=== PATIENT | male | born 1930 | race Caucasian/White ===

== ENCOUNTER 2017-05-01 17:34 | Observation (INO) | payer MEDICARE ==
[~2017-05-01] VITALS: Ht 170.2 cm; Wt 60.0 kg
[~2017-05-01 17:34] MED LIST: /ALEN70TA OR; ACET50TA PO; ACET65TA OR; ALDA25TA2 PO; ALEN10TA2 PO; AMLO5TAB OR; AMLO5TAB PO; ANALCR TOP; ASCO500T PO; ASPI325T PO; ASPI81TA85 PO; AVOD0.5C OR; AVOD0.5C PO; Aleve PO; B-1210009 PO; BABY81CH OR; BABY81CH PO; CALC-210 PO; CALC12502 OR; CALC500T49 PO; CALCIUM CITRATE PO; CALCTAB34 PO; CALCTAB63 PO; COLA100C2 OR; D 1010004 PO; D 50CAP PO; DULE200A IN; ELIQ2.5T PO; FINA5TAB2 PO; FISH1000 PO; FISH100049 PO; FISH5CAP PO; FISHCAP PO; FOSA70TA PO; FURO20TA2 PO; FUROSEMIDE PO; IPRASOL4 INH; LASI20TA PO; LASI40TA PO; LEVO500T3 PO; LIORESAL PO; LISI-542 PO; LISI5TAB PO; MAGN250T11 PO; MAGN400T5 PO; MAGN64TASA PO; METO25TAB PO; MIRA33504 PO; NITR4TASL SL; NORV5TAB OR; OCUVITE PO; Ocuvite PO; PERC5TAB8 OR; PERC7.5T8 OR; PRED10TA PO; PRESCAP PO; PRESCAP4 PO; PROAAER10 IN; PROAAER10 INH; PYRI100T2 PO; PYRI50TA7 PO; SPIR25TA2 PO; SYMB16INH INH; TOPR25TA PO; TRAM50TA2 PO; TYLE325T5 PO; VIT D 2000 PO; VITA1TAB23 PO; VITA2000 PO; VITA250T OR; VITA250T PO; VITA250T30 PO; VITA50TA12 PO; [UNRECOGNIZED DRUG - CODE] PO; [UNRECOGNIZED DRUG - CODE] PO; [UNRECOGNIZED DRUG - OTHER] PO; duoneb NEB; lovaza PO
[2017-05-01 18:38] LABS: BASO % 0.4 % (0.0-1.0); EOS # 0.1 K/mm3 (0.0-0.50); EOS % 0.8 % (0.0-3.0); LARGE UNSTAINED CELL # 0.1 K/mm3 (0.0-0.4); LARGE UNSTAINED CELL % 1.1 % (0.0-4.0); LYMPH # 0.8 K/mm3 (1.5-4.5); LYMPH % 7.3 % (24.0-44.0); MEAN CORPUSCULAR HEMOGLOBIN 32.5 pg (27.0-33.0); MEAN CORPUSCULAR HGB CONC 33.5 g/dl (32.0-36.5); MONO # 0.7 K/mm3 (0.0-0.8); MONO % 6.2 % (0.0-5.0); NEUTROPHILS # 8.9 K/mm3 (1.8-7.7); NEUTROPHILS % 84.1 % (36.0-66.0); PLATELET COUNT, AUTOMATED 394 k/mm3 (150-450); RED CELL DISTRIBUTION WIDTH 12.3 % (11.5-14.5); WHITE BLOOD COUNT 10.6 K/mm3 (4.0-10.0)
[2017-05-01 18:40] LABS: INR 1.09
[2017-05-01 18:54] LABS: ANION GAP 4 MEQ/L (8-16); BLOOD UREA NITROGEN 20 MG/DL (7-18); CALCIUM LEVEL 8.8 MG/DL (8.8-10.2); CARBON DIOXIDE LEVEL 33 MEQ/L (21-32); CHLORIDE LEVEL 88 MEQ/L (98-107); CREATININE FOR GFR 0.73 MG/DL (0.70-1.30); GLOMERULAR FILTRATION RATE > 60.0 (>35); GLUCOSE, FASTING 93 MG/DL (83-110); POTASSIUM SERUM 4.7 MEQ/L (3.5-5.1); SODIUM LEVEL 125 MEQ/L (136-145)
--- NOTE | 2017-05-01 19:30 | REPUSA ---
CLINICAL HISTORY: CVA. TECHNIQUE: Multiple axial CT images were obtained through the brain without IV contrast material. COMMENTS: There is normal configuration of sella turcica. There are no intra or extra-axial collections. There is no mass effect or midline shift. There is no evidence of hematoma formation. No hydrocephalus is p resent. The ventricles are symmetrical. No abnormal calcifications are present. There is encephalomalacia noted involving the left frontal lobe compatible with old infarct. There is diffuse age-appropriate cerebellar and cerebral atrophy with proportionally dilated ventricl es and cortical sulci. There are bilateral periventricular and subcortical white matter hypolucencies compatible with chroni c microvascular disease. Otherwise, no significant focal abnormalities are seen either in the posterior fossa or supratentoria l compartment. IMPRESSION: 1. Age-appropriate cerebellar and cerebral atrophy. 2. Chronic microvascular disease. 3. Encephalomalacia noted involving the left frontal lobe compatible with old infarct. 4. No change in comparison with 10/11/16 study. 5. Consider follow up with MRI with diffusion if clinically warranted. Thank you for your kind referral of this patient.
[2017-05-01] MEDS ORDERED: FISH100049 PO (20:20)
[2017-05-01] MEDS ORDERED: B6 N1TAB PO (20:20)
[2017-05-01] MEDS ORDERED: XARE15TA PO (20:20)
[2017-05-01] MEDS ORDERED: NITROGLYCERIN 0.4 MG SUBL TABLET SL PRN (20:30)
[2017-05-01] MEDS ORDERED: ACETAMINOPHEN TAB 650MG DOSE (2X325MG) PO PRN (20:30)
--- NOTE | 2017-05-01 21:30 | REPUSA ---
CT of the chest without contrast Clinical statement: abnormal chest x-ray. Technique: Multiple axial CT images were obtained with 5 mm cuts through the chest without administra tion of contrast. Comparison: 10/11/2016. Findings: There is no thoracic lymphadenopathy. The visualized portions of the thyroid gland is unrem arkable. Diffuse atherosclerotic changes are seen in the thoracic aorta. There is no evidence of aneu rysm. There are no pericardial or pleural effusions. There is a large spiculated mass in the left upp er lobe measuring 3.9 x 2.8 cm, with central cavitation.. The mass has increase in size from 2.3 x 2. 0 cm on the prior study. Limited imaging of the upper abdomen does not demonstrate any acute abnormal ities. However, there is a large ill-defined low attenuation lesion in segment V of the liver, measu ring 5.8 x 6.4 cm. Several large simple cysts are also seen within the liver, and are stable. There a re no suspicious osseous lesions. Multilevel degenerative disc disease is noted throughout the spine. Impression: 1. Significant increase in size of the large left upper lobe mass consistent with neoplasm. New centr al cavitation is now noted. 2.. No evidence of thoracic metastatic disease. 3. Interval resolution of bilateral lower lobe infiltrates and pleural effusions. 4. New ill-defined lesion in the right lobe of the liver was not seen on the prior study and could re present metastatic disease. Dedicated CT examination of the abdomen and pelvis with contrast is richard mmended. 5.. Stable spondylosis of the spine.
[2017-05-01 23:08] VITALS: BP 140/72
[2017-05-01] MEDS: SPIRONOLACTONE 25 MG TAB PO SCH (23:55)
[2017-05-01] MEDS: MAGNESIUM OXIDE 400 MG TAB (MAG-OX) PO SCH (23:55)
--- NOTE | 2017-05-02 00:25 | HPE ---
DATE OF ADMISSION: 05/01/2017 CHIEF COMPLAINT: Left arm weakness. PRIMARY CARE PROVIDER: Lupis Siu MD. CHIEF OF HOSPITAL MEDICINE: Gerhard Wheeler MD. HISTORY OF PRESENT ILLNESS: This is an 87-year-old male with a history of chronic atrial fibrillation, pacemaker, coronary artery disease, hypertension, chronic hyponatremia, who was at the [facility] where his is a resident. He was assisting her with her dinner when his left hand seemed to shake. He could not control it. He was having difficulty with his speech. He felt as if he was stuttering. He states it lasted at least 5 minutes. The ambulance was called. He was brought to the emergency room. Upon arrival, temperature was 96.8. Pulse was 60. Blood pressure was 123/62. Respirations were 18. Oxygen saturation was 98%. He was alert and oriented. He was given aspirin prior to arrival. At time of arrival, he was oriented. His speech was clear. He had no further tremoring of the left hand. CT of the head was done, which showed age-appropriate cerebellar and cerebral atrophy, chronic microvascular disease, encephalomalacia involving the frontal lobe compatible with old infarct. No change in comparison to 10/11/2016. LABORATORY STUDIES: WBC was slightly elevated at 10.6, hemoglobin 11.9, hematocrit 35.6, platelets were 394. PT was 14.2, INR 1.09, PTT was 36.4. Chemistry showed sodium of 125, chloride 88, CO2 33, BUN was 20, creatinine 0.7. Troponin was 0.04. CPK was normal at 60. The patient has a known history of a lung mass. He has not wanted anything further done with it. Family and the patient requested a CAT scan to see the status of it and that will be ordered. The patient remains stable. Assessment was done and will be admitted as observation status to the telemetry floor for transient ischemic attack (TIA). ALLERGIES: No known allergies. SOCIAL HISTORY: He is . He lives alone. He visits his daily at the [facility]. Ethyl alcohol (EtOH): He used to drink beer quite heavily. He states he quit at [facility] and has only an occasional glass of beer. He states he did have a glass of beer today earlier when cooking. Smokes none. Recreational drug use none. PAST MEDICAL HISTORY: 1. Chronic atrial fibrillation on anticoagulation. 2. Hypertension. 3. Congestive heart failure (CHF). 4. Coronary artery disease with history of myocardial infarction (PA). 5. History of chronic obstructive pulmonary disease (COPD) and lung nodule. 6. History of diverticulitis. 7. BPH. 8. Chronic hyponatremia with a baseline of approximately 125, 126. 9. Osteoarthritis. 10. He has a pacemaker. 11. History of alcoholism. PAST SURGICAL HISTORY: 1. Pacemaker. 2. Bilateral cataract surgery. FAMILY HISTORY: Noncontributory. REVIEW OF SYSTEMS: No complaint of headache. No blurred or double vision. No fever. No chills. No tinnitus. No hoarseness. No difficulty swallowing. No complaints of lightheadedness or vertigo. He had just the episode as described above of slurred speech and a feeling of stuttering, which has resolved. Cardiovascular: No complaints of chest pain, shortness of breath, palpitations or edema. Respiratory: History of COPD. No complaints of cough, sputum production, hemoptysis. No orthopnea or wheeze. Gastrointestinal: No nausea, vomiting or diarrhea. No hematochezia. No melena. No complaints of abdominal pain. Genitourinary: No hematuria, dysuria or frequency. He does have BPH. Musculoskeletal: No joint redness or swelling. Endocrine: No polyuria, polydipsia or polyphagia. Hematological: Is on anticoagulation. Neurological: Episode as described above. No history of seizures. Psychological: No anxiety, depression or suicidal ideation. HOME MEDICATIONS: - ascorbic acid 500 mg by mouth daily - Symbicort 160/4.5 two-puff inhalation twice a day - vitamin D 5000 units daily - BPH 5 mg by mouth daily - omega-3 one capsule by mouth daily - magnesium oxide 400 mg by mouth twice a day - nitroglycerin 0.4 mg sublingual every 5 minutes times three as needed for chest pain - Xarelto 15 mg by mouth daily - spironolactone 25 mg by mouth nightly - alendronate (Fosamax) 70 mg by mouth weekly - paroxetine 100 mg by mouth daily PHYSICAL EXAMINATION: 87-year-old cooperative male in no acute distress. Height 67 inches. Weight 54.6 kg. Body mass index (BMI) 18.9. The patient is alert and oriented times three. Pupils equal and reactive to light. Extraocular muscles (EOMs) are intact. Cornea and sclerae clear. Conjunctivae were normal. No facial asymmetry. Tympanic membranes (TMs) clear bilaterally. Pharynx, tongue and gums pink and moist. Tongue is midline. Neck is supple without lymphadenopathy. No thyromegaly. No goiter. Jugular venous pressure at clavicle. Carotids are 2+ without bruit. Chest decreased breath sounds to base. No wheeze or retraction. Heart is regular. Abdomen is benign. Bowel sounds positive. /rectal: Not done. Extremities show no cyanosis, clubbing or edema. Moves all extremities equally well spontaneously with purpose. Hand industrial hygiene engineer are equal. Cranial nerves II-XII grossly intact. Skin is warm and dry. Peripheral pulses equal and palpable bilaterally. IMPRESSION AND PLAN: 1. Transient ischemic attack (TIA). Admit to telemetry. Get a carotid ultrasound. Continue neurological checks. 2. Left-sided pulmonary nodule. Chest CT for comparison has been ordered. 3. Chronic obstructive pulmonary disease (COPD). Currently clinically stable. Continue Symbicort. 4. Atrial fibrillation. Continues on anticoagulation. 5. BPH. Continue home medicine. 6. Hypertension. Stable. Patient will be admitted observation status to the progressive care unit (PCU).
[2017-05-02 04:25] VITALS: BP 118/65
[2017-05-02 05:43] LABS: BASO % 0.4 % (0.0-1.0); EOS # 0.1 K/mm3 (0.0-0.50); EOS % 1.1 % (0.0-3.0); LARGE UNSTAINED CELL # 0.1 K/mm3 (0.0-0.4); LARGE UNSTAINED CELL % 1.4 % (0.0-4.0); LYMPH # 0.7 K/mm3 (1.5-4.5); LYMPH % 7.4 % (24.0-44.0); MEAN CORPUSCULAR HEMOGLOBIN 32.5 pg (27.0-33.0); MEAN CORPUSCULAR HGB CONC 33.4 g/dl (32.0-36.5); MEAN CORPUSCULAR VOLUME 97.2 fl (80.0-96.0); MONO # 0.7 K/mm3 (0.0-0.8); MONO % 6.7 % (0.0-5.0); NEUTROPHILS # 8.1 K/mm3 (1.8-7.7); PLATELET COUNT, AUTOMATED 383 k/mm3 (150-450); RED CELL DISTRIBUTION WIDTH 12.3 % (11.5-14.5); WHITE BLOOD COUNT 9.7 K/mm3 (4.0-10.0)
[2017-05-02 06:07] LABS: ALBUMIN 2.7 GM/DL (3.2-5.2); ALBUMIN/GLOBULIN RATIO 0.77 (1.00-1.93); ALKALINE PHOSPHATASE 89 U/L (45-117); ALT/SGPT 22 U/L (12-78); ANION GAP 3 MEQ/L (8-16); AST/SGOT 16 U/L (15-37); BILIRUBIN,TOTAL 0.6 MG/DL (0.2-1.0); BLOOD UREA NITROGEN 15 MG/DL (7-18); CALCIUM LEVEL 8.6 MG/DL (8.8-10.2); CARBON DIOXIDE LEVEL 36 MEQ/L (21-32); CHLORIDE LEVEL 92 MEQ/L (98-107); CREATININE FOR GFR 0.51 MG/DL (0.70-1.30); GLOMERULAR FILTRATION RATE > 60.0 (>35); GLUCOSE, FASTING 92 MG/DL (83-110); MAGNESIUM LEVEL 1.8 MG/DL (1.8-2.4); POTASSIUM SERUM 4.8 MEQ/L (3.5-5.1); SODIUM LEVEL 131 MEQ/L (136-145); TOTAL PROTEIN 6.2 GM/DL (6.4-8.2)
[2017-05-02 07:52] VITALS: BP 115/58
[2017-05-02] MEDS: SYMBICORT 160/4.5MCG INHALER 6GM INH SCH ×2 (08:21→20:16)
--- NOTE | 2017-05-02 09:07 | REP ---
PORTABLE CHEST: AP portable view of the chest is performed and compared to a prior studies most recent of which is 10/12/2016. Left upper lobe nodule is seen. I see no acute infiltrate. There is elevation of the left hemidiaphragm. Cardiac silhouette is slightly prominent. There is calcified tortuous aorta. Left single lead pacemaker is noted unchanged. IMPRESSION: Left upper lobe nodule. Signed by Preet Rubio MD 05/02/2017 08:16 P
[2017-05-02] MEDS: RIVAROXABAN 15 MG TAB (XARELTO) PO SCH (10:53)
[2017-05-02] MEDS: FINASTERIDE 5 MG TAB PO SCH (10:53)
[2017-05-02] MEDS: VITAMIN D 1,000 INTERNATIONAL UNITS TABLET PO SCH (10:54)
[2017-05-02] MEDS: MAGNESIUM OXIDE 400 MG TAB (MAG-OX) PO SCH ×2 (10:54→21:30)
[2017-05-02] MEDS: ASCORBIC ACID 500 MG TAB PO SCH (10:54)
[2017-05-02] MEDS: OMEGA-3 1050MG CAPSULE PO SCH (10:54)
[2017-05-02 11:32] VITALS: BP 99/49
[2017-05-02] MEDS ORDERED: ISOVUE-370 76% 100ML VIAL (Q9967) As Ordered ONE (11:54)
--- NOTE | 2017-05-02 12:06 | IPNPDOC ---
Subjective Date Seen The patient was seen on 05/02/17. Subjective Chief Complaint/HPI The patient is a 87-year-old male admitted with a reason for visit of A Fib, Lung Mass, Tia. Events since last encounter no complaints this morning. No further episodes of shaking of his left arm or slurring of speech or aphasia, no fever or chills, no chest pain or sob , no abdominal pain , nausea or vomiting or diarrhea. Objective Physical Examination General Exam: Positive: Alert, Cooperative, No Acute Distress Eye Exam: Positive: PERRLA, Conjunctiva & lids normal, EOMI, Negative: Sclera icteric ENT Exam: Positive: Atraumatic, Mucous membr. moist/pink, Pharynx Normal Neck Exam: Positive: Supple, Negative: JVD, thyromegaly Chest Exam: Positive: Clear to auscultation, Normal air movement Heart Exam: Positive: Irregular Rhythm, Normal S1, Normal S2 Telemetry: Positive: Atrial fibrillation, Other Telemetry: (paced complexes) Abdomen Exam: Positive: Normal bowel sounds, Soft, Negative: Tenderness, Hepatospenomegaly Extremity Exam: Positive: Normal pulses, Negative: Clubbing, Cyanosis, Edema Neuro Exam: Positive: Normal Speech, Strength at 5/5 X4 ext, Normal Tone Assessment /Plan Problems (1) Tremor of left hand Status: Acute Problem Text: seems like patient was having intention tremor with aphasia lasted about 5 mins. need to evaluate for brain mets and focal seizure . Will get ct with contrast and eeg. If all negative then possibly TIA. Has h/o old CVA showing encephalomalacia in the left frontal lobe. (2) Lung cancer Status: Chronic Problem Text: enlarging with central necrosis now also seems to have new liver mets. 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 (4) A-fib Status: Chronic Problem Text: rate controlled. (5) Pacemaker Status: Chronic (6) COPD (chronic obstructive pulmonary disease) Status: Chronic Response to Treatment: Stable Problem Text: will continue with home medications No exacerbation at present. (7) Moderate to severe pulmonary hypertension Status: Chronic Response to Treatment: Stable (8) Diastolic CHF, chronic Status: Chronic Problem Text: appears to be euvolemic at present will continue to monitor weights and I and o (9) Chronic systolic (congestive) heart failure Status: Resolved Problem Text: Probably had systolic and diastolic heart failure with EF of 30 % in 2013 repeat echo in 2016 shows improved EF of 60 % .Possibly has diastolic heart failure only now (10) Mitral regurgitation Status: Chronic (11) BPH (benign prostatic hyperplasia) Status: Chronic (12) HTN (hypertension) Status: Chronic Plan/VTE VTE Prophylaxis Ordered?: Yes VS, I&O, 24H, Fishbone Vital Signs/I&O Vital Signs Date Time Temp Pulse Resp B/P (MAP) Pulse Ox O2 Delivery O2 Flow Rate FiO2 05/02/17 11:32 97.4 60 18 99/49 (66) 98 Room Air I&O- Last 24 Hours up to 6 AM 05/02/17 05:59 Intake Total 0 ml Output Total 275 ml Balance -275 ml Laboratory Data 24H LABS Laboratory Tests 2 05/01/17 17:55: White Blood Count 10.6H, Red Blood Count 3.67L, Hemoglobin 11.9L, Hematocrit 35.6L, Mean Corpuscular Volume 97.0H, Mean Corpuscular Hemoglobin 32.5, Mean Corpuscular Hemoglobin Concent 33.5, Red Cell Distribution Width 12.3, Platelet Count 394, Neutrophils (%) (Auto) 84.1H, Lymphocytes (%) (Auto) 7.3L, Monocytes (%) (Auto) 6.2H, Eosinophils (%) (Auto) 0.8, Basophils (%) (Auto) 0.4, Neutrophils # (Auto) 8.9H, Lymphocytes # (Auto) 0.8L, Monocytes # (Auto) 0.7, Eosinophils # (Auto) 0.1, Basophils # (Auto) 0.0, Large Unclassified Cells % 1.1 , Large Unclassified Cells # 0.1, Prothrombin Time 14.2, Prothromb Time International Ratio 1.09, Activated Partial Thromboplast Time 36.4, Anion Gap 4L , Glomerular Filtration Rate > 60.0, Blood Urea Nitrogen 20H, Creatinine 0.73, Sodium Level 125L, Potassium Level 4.7, Chloride Level 88L, Carbon Dioxide Level 33H, Calcium Level 8.8, Total Creatine Kinase 60, Creatine Kinase MB 2.7, Creatine Kinase MB Relative Index 4.50H, Troponin I 0.04 05/01/17 23:42: Total Creatine Kinase 55, Creatine Kinase MB 2.9, Creatine Kinase MB Relative Index 5.27H, Troponin I 0.05# 05/02/17 05:07: White Blood Count 9.7, Red Blood Count 3.75L, Hemoglobin 12.2L, Hematocrit 36.4L , Mean Corpuscular Volume 97.2H, Mean Corpuscular Hemoglobin 32.5, Mean Corpuscular Hemoglobin Concent 33.4, Red Cell Distribution Width 12.3, Platelet Count 383, Neutrophils (%) (Auto) 83.0H, Lymphocytes (%) (Auto) 7.4L, Monocytes (%) (Auto) 6.7H, Eosinophils (%) (Auto) 1.1, Basophils (%) (Auto) 0.4, Neutrophils # (Auto) 8.1H, Lymphocytes # (Auto) 0.7L, Monocytes # (Auto) 0.7, Eosinophils # (Auto) 0.1, Basophils # (Auto) 0.0, Large Unclassified Cells % 1.4 , Large Unclassified Cells # 0.1, Anion Gap 3L, Glomerular Filtration Rate > 60.0, Blood Urea Nitrogen 15, Creatinine 0.51L, Sodium Level 131L, Potassium Level 4.8, Chloride Level 92L, Carbon Dioxide Level 36H, Calcium Level 8.6L, Total Creatine Kinase 50, Creatine Kinase MB 2.9, Creatine Kinase MB Relative Index 5.80H, Troponin I 0.03#, Aspartate Amino Transf (AST/SGOT) 16, Alanine Aminotransferase (ALT/SGPT) 22, Alkaline Phosphatase 89, Total Bilirubin 0.6, Total Protein 6.2L, Albumin 2.7L, Magnesium Level 1.8, Albumin/Globulin Ratio 0.77L CBC/BMP Laboratory Tests 05/01/17 17:55 Red Blood Count 3.67 L, Mean Corpuscular Volume 97.0 H, Mean Corpuscular Hemoglobin 32.5, Mean Corpuscular Hemoglobin Concent 33.5, Red Cell Distribution Width 12.3, Neutrophils (%) (Auto) 84.1 H, Lymphocytes (%) (Auto) 7.3 L, Monocytes (%) (Auto) 6.2 H, Eosinophils (%) (Auto) 0.8, Basophils (%) ( Auto) 0.4, Neutrophils # (Auto) 8.9 H, Lymphocytes # (Auto) 0.8 L, Monocytes # ( Auto) 0.7, Eosinophils # (Auto) 0.1, Basophils # (Auto) 0.0, Calcium Level 8.8, Total Creatine Kinase 60 05/02/17 05:07 Red Blood Count 3.75 L, Mean Corpuscular Volume 97.2 H, Mean Corpuscular Hemoglobin 32.5, Mean Corpuscular Hemoglobin Concent 33.4, Red Cell Distribution Width 12.3, Neutrophils (%) (Auto) 83.0 H, Lymphocytes (%) (Auto) 7.4 L, Monocytes (%) (Auto) 6.7 H, Eosinophils (%) (Auto) 1.1, Basophils (%) ( Auto) 0.4, Neutrophils # (Auto) 8.1 H, Lymphocytes # (Auto) 0.7 L, Monocytes # ( Auto) 0.7, Eosinophils # (Auto) 0.1, Basophils # (Auto) 0.0, Calcium Level 8.6 L , Total Creatine Kinase 50, Aspartate Amino Transf (AST/SGOT) 16, Alanine Aminotransferase (ALT/SGPT) 22, Alkaline Phosphatase 89, Total Bilirubin 0.6, Total Protein 6.2 L, Albumin 2.7 L MURRAY HURTADO MD May 02, 2017 12:06
--- NOTE | 2017-05-02 15:56 | REP ---
HISTORY: Lung cancer. CONTRAST: 100 mL [id number] COMPARISON: 05/01/2017, a noncontrast enhanced examination. The noncontrast enhanced portion of the examination again shows left frontal lobe encephalomalacia, status quo. There is no mass effect on the noncontrast enhanced exam and there are no enhancing lesions on the postcontrast enhanced portion of the exam. There is no change in the ventricles or sulci. There is an unchanged right basal ganglia and lacunar infarct. This is old and in fact unchanged when older exam of 10/11/2016. There is no evidence of an acute intracranial hemorrhagic or nonhemorrhagic event. There is no change in the skull base or skull. The imaged paranasal sinuses and mastoid air cells are unchanged. IMPRESSION: No significant change with findings as described above. There is cerebral and cerebellar atrophy and other chronic changes as described above. There is no evidence of acute disease. Signed by Jesus Lynch DO 05/02/2017 03:59 P
[2017-05-02 16:00] VITALS: BP 128/64
--- NOTE | 2017-05-02 16:05 | REP ---
CAROTID DUPLEX ULTRASOUND: 05/02/2017. Clinical history: TIA symptoms. No prior pertinent studies. Findings: Standard duplex techniques were utilized for each carotid. The right common carotid shows moderate soft and mixed plaque with some areas of larger calcific plaque with shadowing in the proximal CCA into the mid CCA. There is moderate circumferential mixed plaque with shadowing at the bulb and extending into the ICA and ECA. The left common carotid also shows moderate mixed plaque with largest amount of plaque in the distal CCA with some shadowing. There is also some shadowing plaque in the mid CCA. There is circumferential plaque at the bulb with significant shadowing and extending into the proximal ICA, ECA. Peak velocities: RIGHT: CCA systolic 0.92 m/s ICA systolic 0.49 m/s ICA diastolic 0.12 m/s ECA systolic 0.69 m/s ICA/CCA ratio 0.53 LEFT: CCA systolic 0.76 m/s ICA systolic 0.62 m/s ICA diastolic 0.17 m/s ECA systolic 0.92 m/s ICA/CCA ratio 0.83 With color flow. The Doppler waveform analysis does not show any significant spectral broadening or filling in of the systolic window. However and irregular rhythm is occasionally noted. Impression: 1. Carotid duplex ultrasound suggests less than 50% stenosis by Doppler criteria. There is certainly significant plaque visible in the CCA and more on the left than right bulb region plaque extending into both ICA's. The velocity Doppler criteria and color images, this is not hemodynamically significant or flow restricting. 2. Cranial direction of flow in the right vertebral artery. Left vertebral artery not seen. Signed by Wilder Dumas MD 05/03/2017 03:54 P
[2017-05-02 19:52] VITALS: BP 129/69
[2017-05-02] MEDS: SPIRONOLACTONE 25 MG TAB PO SCH (21:30)
[2017-05-03] VITALS (7 sets, daily range): BP systolic 108–163; BP diastolic 57–72
--- NOTE | 2017-05-03 05:20 | EEG ---
DATE OF PROCEDURE: 05/02/2017 REFERRING PHYSICIAN: Dr. Catie Little DIAGNOSIS: Focal seizure. EEG NUMBER: [id number]. HISTORY: Patient is an 87-year-old male who was helping his with her dinner when his left hand started to shake. He could not control it. He was having difficulty with his speech. This lasted for 5 minutes. This EEG was done to rule out epileptic potential. Patient had a lung mass and does not want to do anything further with it. He is currently taking Xarelto, spironolactone, fish oil, etc. TECHNICAL DESCRIPTION: This digital EEG was recorded by 21 scalp, ear and two EKG electrodes and was reviewed in bipolar and referential montages following reformatting in 10-20 international electrode placement system. INTERPRETATION: Patient was noted to be in awake and drowsy states during this EEG. Resting awake background rhythm consisted of 8 Hz alpha activity measuring 15-40 microvolts in amplitude, which was symmetric and reactive to eye opening. Attenuation of posterior dominant rhythm was seen during transition into drowsiness. Stage I and II sleep were reviewed and were symmetric bilaterally. Hyperventilation and photic stimulation remained unremarkable. EKG revealed normal sinus rhythm. No focal, lateralizing or epileptiform abnormalities were seen. No clinical or electrographic seizures were recorded. CONCLUSION: This EEG in awake, drowsy states, stage I and II sleep is within normal limits for the patient stated age. A simple partial or focal motor seizure cannot be excluded based on a normal routine EEG. Clinical correlation is recommended.
[2017-05-03] MEDS: SYMBICORT 160/4.5MCG INHALER 6GM INH SCH ×2 (08:53→20:09)
--- NOTE | 2017-05-03 09:01 | ECGEPIP ---
Stationary ECG Study [facility] - ED Test Date: 2017-05-01 Pat Name: TONIA DANIELSON Department: Room: - Gender: M Slide Maker: rn : [id number] Requested By: Christiano Navarro Order Number: [id number] Reading MD: Lin Carrington Measurements Intervals [place] Rate: 59 P: [place]: 0 QRS: 35 QRSD: 132 T: -45 QT: 427 QTc: 426 Interpretive Statements ELECTRONIC VENTRICULAR PACEMAKER ABNORMAL RHYTHM ECG PRIOR 10/11/16 NOT PACED, SINUS RHYTHM Electronically Signed On 05-03-2017 9:01:45 EDT by Lin Carrington
[2017-05-03] MEDS: FINASTERIDE 5 MG TAB PO SCH (09:30)
[2017-05-03] MEDS: VITAMIN D 1,000 INTERNATIONAL UNITS TABLET PO SCH (09:30)
[2017-05-03] MEDS: OMEGA-3 1050MG CAPSULE PO SCH (09:30)
[2017-05-03] MEDS: MAGNESIUM OXIDE 400 MG TAB (MAG-OX) PO SCH ×2 (09:31→21:49)
[2017-05-03] MEDS: ASCORBIC ACID 500 MG TAB PO SCH (09:31)
[2017-05-03] MEDS: RIVAROXABAN 15 MG TAB (XARELTO) PO SCH (09:31)
[2017-05-03 12:57] LABS: BASO % 0.3 % (0.0-1.0); EOS # 0.2 K/mm3 (0.0-0.50); EOS % 1.8 % (0.0-3.0); LARGE UNSTAINED CELL # 0.1 K/mm3 (0.0-0.4); LARGE UNSTAINED CELL % 0.9 % (0.0-4.0); LYMPH % 9.4 % (24.0-44.0); MEAN CORPUSCULAR VOLUME 97.1 fl (80.0-96.0); MONO # 0.7 K/mm3 (0.0-0.8); MONO % 7.3 % (0.0-5.0); NEUTROPHILS % 80.4 % (36.0-66.0); PLATELET COUNT, AUTOMATED 352 k/mm3 (150-450); RED CELL DISTRIBUTION WIDTH 12.5 % (11.5-14.5)
[2017-05-03 12:59] LABS: ALBUMIN 2.8 GM/DL (3.2-5.2); ALBUMIN/GLOBULIN RATIO 0.88 (1.00-1.93); ALKALINE PHOSPHATASE 107 U/L (45-117); ALT/SGPT 21 U/L (12-78); ANION GAP 4 MEQ/L (8-16); AST/SGOT 18 U/L (15-37); BILIRUBIN,TOTAL 0.5 MG/DL (0.2-1.0); BLOOD UREA NITROGEN 15 MG/DL (7-18); CALCIUM LEVEL 8.7 MG/DL (8.8-10.2); CARBON DIOXIDE LEVEL 34 MEQ/L (21-32); CHLORIDE LEVEL 90 MEQ/L (98-107); CREATININE FOR GFR 0.44 MG/DL (0.70-1.30); GLOMERULAR FILTRATION RATE > 60.0 (>35); GLUCOSE, FASTING 72 MG/DL (83-110); SODIUM LEVEL 128 MEQ/L (136-145)
[2017-05-03 13:12] LABS: POTASSIUM SERUM 5.3 MEQ/L (3.5-5.1)
--- NOTE | 2017-05-03 17:33 | IPNPDOC ---
Subjective Date Seen The patient was seen on 05/03/17. Subjective Chief Complaint/HPI The patient is a 87-year-old male admitted with a reason for visit of A Fib, Lung Mass, Tia. Events since last encounter pt seen and examined, doing well, no focal deficits, no overnight events Constitutional: Denies: Chills, Fever, Night Sweats Cardiovascular: Denies: Chest Pain, Palpitations, Orthopnea, Paroxysmal Noc. Dyspnea, Lt Headedness Gastrointestinal: Denies: Nausea, Vomiting, Abdominal Pain, Diarrhea, Constipation, Melena, Hematochezia, Other Symptoms Neurological: Reports: Numbness, Denies: Weakness, Change in speech, Confusion Objective Physical Examination General Exam: Positive: Alert, Cooperative, No Acute Distress Eye Exam: Positive: PERRLA, Conjunctiva & lids normal, EOMI, Negative: Sclera icteric ENT Exam: Positive: Atraumatic, Mucous membr. moist/pink, Pharynx Normal Neck Exam: Positive: Supple, Negative: JVD, thyromegaly Chest Exam: Positive: Clear to auscultation, Normal air movement Heart Exam: Positive: Irregular Rhythm, Normal S1, Normal S2 Telemetry: Positive: Atrial fibrillation, Other Telemetry: (paced complexes) Abdomen Exam: Positive: Normal bowel sounds, Soft, Negative: Tenderness, Hepatospenomegaly Extremity Exam: Positive: Normal pulses, Negative: Clubbing, Cyanosis, Edema Neuro Exam: Positive: Normal Speech, Strength at 5/5 X4 ext, Normal Tone Assessment /Plan Problems (1) Tremor of left hand Status: Resolved Problem Text: seems like patient was having intention tremor with aphasia lasted about [address] head was negative EEG couldn't rule out seizure activities, will start pt on Keppra [id number]. spoke with Dr Méndez since pt only had focal seizure there is no need to restrict his driving at this time will set up neurology f/u upon discharge (2) Lung cancer Status: Chronic Problem Text: * enlarging with central necrosis now * also seems to have new liver mets. 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 (4) A-fib Status: Chronic Problem Text: rate controlled. continue xarelto (5) Pacemaker Status: Chronic (6) COPD (chronic obstructive pulmonary disease) Status: Chronic Response to Treatment: Stable Problem Text: will continue with home medications No exacerbation at present. (7) Moderate to severe pulmonary hypertension Status: Chronic Response to Treatment: Stable (8) Diastolic CHF, chronic Status: Chronic Problem Text: appears to be euvolemic at present will continue to monitor weights and I and o (9) Chronic systolic (congestive) heart failure Status: Resolved Problem Text: Probably had systolic and diastolic heart failure with EF of 30 % in 2013 repeat echo in 2016 shows improved EF of 60 % .Possibly has diastolic heart failure only now (10) Mitral regurgitation Status: Chronic (11) BPH (benign prostatic hyperplasia) Status: Chronic (12) HTN (hypertension) Status: Chronic Plan/VTE VTE Prophylaxis Ordered?: Yes VS, I&O, 24H, Fishbone Vital Signs/I&O Vital Signs Date Time Temp Pulse Resp B/P (MAP) Pulse Ox O2 Delivery O2 Flow Rate FiO2 05/03/17 16:00 97.3 75 18 163/72 (102) 94 Room Air I&O- Last 24 Hours up to 6 AM 05/03/17 06:00 Intake Total 840 ml Output Total 850 ml Balance -10 ml Laboratory Data 24H LABS Laboratory Tests 2 05/03/17 12:06: White Blood Count 10.0, Red Blood Count 3.71L, Hemoglobin 12.2L, Hematocrit 36.0L, Mean Corpuscular Volume 97.1H, Mean Corpuscular Hemoglobin 33.0, Mean Corpuscular Hemoglobin Concent 34.0, Red Cell Distribution Width 12.5, Platelet Count 352, Neutrophils (%) (Auto) 80.4H, Lymphocytes (%) (Auto) 9.4L, Monocytes (%) (Auto) 7.3H, Eosinophils (%) (Auto) 1.8, Basophils (%) (Auto) 0.3, Neutrophils # (Auto) 8.0H, Lymphocytes # (Auto) 1.0L, Monocytes # (Auto) 0.7, Eosinophils # (Auto) 0.2, Basophils # (Auto) 0.0, Large Unclassified Cells % 0.9 , Large Unclassified Cells # 0.1, Anion Gap 4L, Glomerular Filtration Rate > 60.0, Blood Urea Nitrogen 15, Creatinine 0.44L, Sodium Level 128L, Potassium Level 5.3H, Chloride Level 90L, Carbon Dioxide Level 34H, Calcium Level 8.7L, Aspartate Amino Transf (AST/SGOT) 18, Alanine Aminotransferase (ALT/SGPT) 21, Alkaline Phosphatase 107, Total Bilirubin 0.5, Total Protein 6.0L, Albumin 2.8L , Albumin/Globulin Ratio 0.88L CBC/BMP Laboratory Tests 05/03/17 12:06 Red Blood Count 3.71 L, Mean Corpuscular Volume 97.1 H, Mean Corpuscular Hemoglobin 33.0, Mean Corpuscular Hemoglobin Concent 34.0, Red Cell Distribution Width 12.5, Neutrophils (%) (Auto) 80.4 H, Lymphocytes (%) (Auto) 9.4 L, Monocytes (%) (Auto) 7.3 H, Eosinophils (%) (Auto) 1.8, Basophils (%) ( Auto) 0.3, Neutrophils # (Auto) 8.0 H, Lymphocytes # (Auto) 1.0 L, Monocytes # ( Auto) 0.7, Eosinophils # (Auto) 0.2, Basophils # (Auto) 0.0, Calcium Level 8.7 L , Aspartate Amino Transf (AST/SGOT) 18, Alanine Aminotransferase (ALT/SGPT) 21, Alkaline Phosphatase 107, Total Bilirubin 0.5, Total Protein 6.0 L, Albumin 2.8 L RAFITA KEN DO May 03, 2017 17:33
[2017-05-03] MEDS ORDERED: SLF 3 ML SYR IV PRN (21:45)
[2017-05-03] MEDS: levETIRAcetam 250MG TABLET (KEPPRA) PO SCH (21:49)
[2017-05-03] MEDS: SPIRONOLACTONE 25 MG TAB PO SCH (21:49)
[2017-05-03] MEDS: SLF 3 ML SYR IV SCH (21:56)
[2017-05-04 03:54] VITALS: BP 127/65
[2017-05-04] MEDS: SLF 3 ML SYR IV SCH (04:11)
[2017-05-04 05:16] LABS: MEAN CORPUSCULAR HEMOGLOBIN 32.4 pg (27.0-33.0); MEAN CORPUSCULAR HGB CONC 33.6 g/dl (32.0-36.5); MEAN CORPUSCULAR VOLUME 96.5 fl (80.0-96.0); RED CELL DISTRIBUTION WIDTH 12.3 % (11.5-14.5); WHITE BLOOD COUNT 9.2 K/mm3 (4.0-10.0)
[2017-05-04 05:30] LABS: ALBUMIN 2.6 GM/DL (3.2-5.2); ALBUMIN/GLOBULIN RATIO 0.74 (1.00-1.93); ALKALINE PHOSPHATASE 103 U/L (45-117); ALT/SGPT 19 U/L (12-78); ANION GAP 4 MEQ/L (8-16); AST/SGOT 16 U/L (15-37); BILIRUBIN,TOTAL 0.5 MG/DL (0.2-1.0); BLOOD UREA NITROGEN 14 MG/DL (7-18); CALCIUM LEVEL 8.4 MG/DL (8.8-10.2); CARBON DIOXIDE LEVEL 32 MEQ/L (21-32); CHLORIDE LEVEL 92 MEQ/L (98-107); CREATININE FOR GFR 0.48 MG/DL (0.70-1.30); GLOMERULAR FILTRATION RATE > 60.0 (>35); GLUCOSE, FASTING 90 MG/DL (83-110); POTASSIUM SERUM 4.3 MEQ/L (3.5-5.1); SODIUM LEVEL 128 MEQ/L (136-145); TOTAL PROTEIN 6.1 GM/DL (6.4-8.2)
[2017-05-04 08:00] VITALS: BP 108/53
[2017-05-04] MEDS: VITAMIN D 1,000 INTERNATIONAL UNITS TABLET PO SCH (08:27)
[2017-05-04] MEDS: FINASTERIDE 5 MG TAB PO SCH (08:28)
[2017-05-04] MEDS: levETIRAcetam 250MG TABLET (KEPPRA) PO SCH (08:28)
[2017-05-04] MEDS: MAGNESIUM OXIDE 400 MG TAB (MAG-OX) PO SCH (08:28)
[2017-05-04] MEDS: OMEGA-3 1050MG CAPSULE PO SCH (08:28)
[2017-05-04] MEDS: RIVAROXABAN 15 MG TAB (XARELTO) PO SCH (08:28)
[2017-05-04] MEDS: ASCORBIC ACID 500 MG TAB PO SCH (08:28)
[2017-05-04] MEDS: SYMBICORT 160/4.5MCG INHALER 6GM INH SCH (08:44)
[2017-05-04 11:55] VITALS: BP 123/58
[2017-05-04] MEDS ORDERED: KEPP1TAB PO (13:54)
== END 2017-05-04 14:50 | disposition home or self-care (01) ==
LOC: M ED 18:37 → M ED INP 20:19 → M PCU 22:56
PROVIDERS: ADMIT Internal Medicine Nephrology; ATTEND Internal Medicine Nephrology
DX: G25.2 Other specified forms of tremor (principal); R47.01 Aphasia; C34.90 Malignant neoplasm of unspecified part of unspecified bronchus or lung; R16.0 Hepatomegaly, not elsewhere classified; E87.1 Hypo-osmolality and hyponatremia; I48.2 Chronic atrial fibrillation; Z95.0 Presence of cardiac pacemaker; J44.9 Chronic obstructive pulmonary disease, unspecified; I27.2 Other secondary pulmonary hypertension; I50.42 Chronic combined systolic (congestive) and diastolic (congestive) heart failure; I34.0 Nonrheumatic mitral (valve) insufficiency; N40.0 Benign prostatic hyperplasia without lower urinary tract symptoms; I10 Essential (primary) hypertension; I25.10 Atherosclerotic heart disease of native coronary artery without angina pectoris; K57.92 Diverticulitis of intestine, part unspecified, without perforation or abscess without bleeding; Z86.73 Personal history of transient ischemic attack (TIA), and cerebral infarction without residual deficits; I25.2 Old myocardial infarction; M19.90 Unspecified osteoarthritis, unspecified site; F10.21 Alcohol dependence, in remission; Z79.899 Other long term (current) drug therapy; Z79.51 Long term (current) use of inhaled steroids; Z79.01 Long term (current) use of anticoagulants
CPT/HCPCS: 36415; 70450; 70470; 71010; 71250; 80048; 80053; 82550; 82553; 83735; 84484; 85025; 85027; 85610; 85730; 86850; 86900; 86901; 93005; 93041; 93880; 94640; 94664; 94760; 95819; 97161; 99285; G0378; G8978; G8979; G8980; Q9967

== ENCOUNTER 2017-05-12 13:33 | Inpatient (IN) | payer MEDICARE ==
[~2017-05-12] VITALS: Ht 162.6 cm; Wt 53.8 kg
[~2017-05-12 13:33] MED LIST changes: +B6 N1TAB PO; +KEPP1TAB PO; +XARE15TA PO
--- NOTE | 2017-05-12 14:35 | REP ---
NONCONTRAST HEAD CT: HISTORY: Injury in a fall. Comparison head CT studies are from October 11, 2016 and May 02, 2017. 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 The maxilla is edentulous. Bone window settings show no evidence of skull fracture. No significant scalp hematoma is appreciated. Visualized paranasal sinuses are clear with some mucosal thickening in the ethmoid air cells. No intraorbital abnormality is seen. There is diffuse moderate cerebral atrophy. There is an area of encephalomalacia in the left frontal lobe consistent with an old infarct unchanged from October 11, 2016. There is also an old small lacunar infarct in the sub insular cortex the right side. This is unchanged as well. There is no evidence of intracranial hemorrhage. No extra-axial fluid collection is seen. No mass, infarct or midline shift is seen. There is heavy vascular calcification in the distal carotid arteries. IMPRESSION: Moderate diffuse atrophy. Heavy vascular calcification. No skull fracture or intracranial injury. 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 Signed by Emre Boykin MD 05/12/2017 03:35 P
--- NOTE | 2017-05-12 14:35 | REP ---
Clinical: Cough and dyspnea. Comparison: 05/01/2017. Technique: AP and lateral. Findings: Left upper lobe mass unchanged. Single lead pacemaker in stable position. Cardiac silhouette is normal. Hilar adenopathy suggested. Lung woo demonstrate diffuse chronic interstitial changes and fibrosis. No effusion. No pneumothorax. Skeletal structures intact. Impression: Diffuse chronic fibrosis and interstitial disease. Left upper lobe mass unchanged. Hilar adenopathy suggested. Signed by Aashish Cheney MD 05/12/2017 02:27 P
[2017-05-12 15:07] LABS: LYMPH % 4.1 % (24.0-44.0); MEAN CORPUSCULAR HEMOGLOBIN 32.6 pg (27.0-33.0); MEAN CORPUSCULAR HGB CONC 34.2 g/dl (32.0-36.5); MEAN CORPUSCULAR VOLUME 95.3 fl (80.0-96.0); NEUTROPHILS % 90.2 % (36.0-66.0); PLATELET COUNT, AUTOMATED 341 k/mm3 (150-450); RED CELL DISTRIBUTION WIDTH 12.3 % (11.5-14.5); WHITE BLOOD COUNT 8.4 K/mm3 (4.0-10.0)
[2017-05-12 15:08] LABS: ADD MANUAL DIFFER NO; BASO % 0.3 % (0.0-1.0); DIFF SLIDE NUMBER 217; EOS % 0.4 % (0.0-3.0); LARGE UNSTAINED CELL # 0.1 K/mm3 (0.0-0.4); LARGE UNSTAINED CELL % 1.1 % (0.0-4.0); LYMPH # 0.4 K/mm3 (1.5-4.5); MONO % 3.9 % (0.0-5.0); NEUTROPHILS # 7.6 K/mm3 (1.8-7.7)
[2017-05-12 15:09] LABS: MONO # 0.3 K/mm3 (0.0-0.8)
[2017-05-12 15:15] LABS: INR 1.13
[2017-05-12 15:22] LABS: ALBUMIN/GLOBULIN RATIO 0.79 (1.00-1.93); BILIRUBIN,DIRECT 0.1 MG/DL (0.0-0.2); BILIRUBIN,TOTAL 0.4 MG/DL (0.2-1.0); THYROXINE (T4) 7.6 UG/DL (4.5-12.0); TOTAL PROTEIN 6.8 GM/DL (6.4-8.2)
[2017-05-12 15:44] LABS: ANION GAP 8 MEQ/L (8-16); BLOOD UREA NITROGEN 15 MG/DL (7-18); CALCIUM LEVEL 8.1 MG/DL (8.8-10.2); CARBON DIOXIDE LEVEL 29 MEQ/L (21-32); CHLORIDE LEVEL 86 MEQ/L (98-107); CREATININE FOR GFR 0.52 MG/DL (0.70-1.30); GLOMERULAR FILTRATION RATE > 60.0 (>35); GLUCOSE, FASTING 96 MG/DL (83-110); POTASSIUM SERUM 4.6 MEQ/L (3.5-5.1); SODIUM LEVEL 123 MEQ/L (136-145)
[2017-05-12] MEDS ORDERED: cefTRIAXone SOD 2 GM in D5W MINI-BAG PLUS 50 ML IV ONE (15:45)
[2017-05-12] MEDS ORDERED: AZITHROMYCIN INJ 500 MG, VIAL MATE ADAPTER 1 EACH in D5W 250 ML IV ONE (15:45)
[2017-05-12] MEDS ORDERED: KEPP1TAB PO (16:22)
[2017-05-12] MEDS ORDERED: PERCOCET 5MG/325MG TAB PO PRN (17:45)
[2017-05-12] MEDS ORDERED: BISACODYL 5 MG TAB PO PRN (17:45)
[2017-05-12] MEDS ORDERED: ACETAMINOPHEN TAB 650MG DOSE (2X325MG) PO PRN (17:45)
[2017-05-12] MEDS ORDERED: IPRATROPIUM 0.5MG/ALBUTEROL 2.5MG INH SOL UD 3ML (DUONEB)(J7620) NEB PRN (17:45)
[2017-05-12] MEDS: NS 1,000 ML IV SCH ×7 (18:10→23:36)
[2017-05-12 18:38] LABS: URIC ACID,RANDOM URINE 63.8 MG/DL
[2017-05-12 20:50] VITALS: BP 157/53
[2017-05-12] MEDS: MAGNESIUM OXIDE 400 MG TAB (MAG-OX) PO SCH (21:00)
[2017-05-12] MEDS: levETIRAcetam 250MG TABLET (KEPPRA) PO SCH (21:00)
[2017-05-12] MEDS: IPRATROPIUM 0.5MG/ALBUTEROL 2.5MG INH SOL UD 3ML (DUONEB)(J7620) NEB SCH (23:59)
[2017-05-13] MEDS ORDERED: NITROGLYCERIN 0.4 MG SUBL TABLET SL PRN
[2017-05-13] MEDS: NS 1,000 ML IV SCH ×6 (00:36→05:36)
[2017-05-13 00:50] LABS: BLOOD UREA NITROGEN 10 MG/DL (7-18); GLUCOSE, FASTING 82 MG/DL (83-110)
[2017-05-13 00:51] LABS: ANION GAP 7 MEQ/L (8-16); CARBON DIOXIDE LEVEL 29 MEQ/L (21-32); POTASSIUM SERUM 4.2 MEQ/L (3.5-5.1); SODIUM LEVEL 128 MEQ/L (136-145)
[2017-05-13 00:52] LABS: CALCIUM LEVEL 7.7 MG/DL (8.8-10.2); CHLORIDE LEVEL 92 MEQ/L (98-107); CREATININE FOR GFR 0.43 MG/DL (0.70-1.30); GLOMERULAR FILTRATION RATE > 60.0 (>35)
--- NOTE | 2017-05-13 01:07 | HPE ---
DATE OF ADMISSION: 05/12/2017 PRIMARY CARE PROVIDER: Lupis Siu MD. CHIEF COMPLAINT: Generalized weakness. HISTORY OF PRESENT ILLNESS: 87-year-old male with many, many multiple medical problems including malignant lung mass. He was recently discharged on the after treatment for transient ischemic attack (TIA). Since discharge, he reports progressive weakness to the point his legs are becoming weaker by the day. He fell 2 days ago and it was difficult to get up. He does live alone. States that he avoids sugar and salt. He is no longer able to take care of himself as previously. He does have his in a custodial and she is a resident there for 4 years. REVIEW OF SYSTEMS: 10-point systems assessed are negative except listed above in history of present illness (HPI). PAST MEDICAL HISTORY: Includes: 1. Chronic atrial fibrillation on anticoagulation. 2. Hypertension. 3. Chronic diastolic congestive heart failure (CHF). 4. Coronary artery disease with history of myocardial infarction (IA). 5. History of chronic obstructive pulmonary disease (COPD). 6. History of malignant lung nodule of which patient refused any kind of intervention or treatment. 7. History of BPH. 8. History of chronic hyponatremia, baseline sodium level 126. 9. History of osteoarthritis. 10. History of alcoholism. PAST SURGICAL HISTORY: 1. PPM. 2. Bilateral cataract extraction. FAMILY HISTORY: Noncontributory. SOCIAL HISTORY: Patient is an ex-smoker. Denies alcohol or any illicit drug use. ALLERGIES TO MEDICATIONS: None. HOME MEDICATIONS: Include: - ascorbic acid 500 mg daily - Symbicort 160/4.5 mcg two puffs twice a day - vitamin D 5000 units daily - omega-3 a capsule daily - magnesium oxide 400 mg daily - sublingual nitroglycerin - Xarelto 15 mg daily - spironolactone 25 mg at night - alendronate 70 mg weekly - paroxetine 100 mg daily - finasteride 5 mg once a day PHYSICAL EXAMINATION: VITAL SIGNS: Stable. GENERAL: He is alert, oriented to person, place, time and circumstance, in no distress. HEENT: Pupils are equal and reactive. Extraocular muscles are intact. Anicteric sclerae. Mucous membranes moist. He has clear conjunctivae. Facial asymmetry. Neck is supple without tenderness. No palpable lymphadenopathy. No thyromegaly. CARDIOVASCULAR SYSTEM: S1, S2 present with irregular rate. RESPIRATORY SYSTEM: Lungs are clear to auscultation bilaterally. GASTROINTESTINAL: Abdomen is soft, nontender, nondistended. Bowel sounds are normal. RECTAL: Exam deferred. GENITOURINARY: Exam deferred. MUSCULOSKELETAL SYSTEM: No edema, cyanosis or calf tenderness. SKIN: Warm, dry, ex-cyanotic without rash. NEUROLOGIC: Nonfocal findings. LABORATORIES: Hematology: White blood cell count 8.4, hemoglobin 13, hematocrit 38, platelets 41. Coagulopathy: INR 1.13, PT 14.6. Chemistry: Sodium 123, potassium 4.6, chloride 86, bicarbonate 29, BUN 15, creatinine 0.52, glucose 96, osmolarity 258, lactic acid 1.5, calcium 8.1. Liver function tests within normal limits. Troponin I less than 0.02. CRP 8.94. BNP 355. Total protein 6.8, albumin 3.0. TSH 1.2. IMAGING STUDIES: CT scan of the head shows nothing acute. There is diffuse moderate atrophy and heavy vascular calcifications, old left frontal cortical infarct and old lacunar infarct in the right basal ganglia. Chest x-ray diffuse chronic fibrosis and interstitial disease, left upper lobe mass unchanged and hilar adenopathy. IMPRESSION: 1. Hypovolemic hyponatremia. 2. Generalized weakness. 3. Malignant lung mass, old. 4. History of hypertension, stable blood pressure. 5. Chronic diastolic congestive heart failure (CHF), stable. 6. Chronic atrial fibrillation on anticoagulation, stable. 7. History of coronary artery disease (CAD), stable. 8. History of chronic obstructive pulmonary disease (COPD), also stable. PLAN: Patient is admitted to the medical/surgical floor. He is on regular diet and fluid. Supplement saline at 80 mL/h. Will followup a sodium level in the morning. All home medications were resumed. Physical therapy (PT) evaluation and treatment ordered. Case management consulted for placement.
[2017-05-13] MEDS: SYMBICORT 160/4.5MCG INHALER 6GM INH SCH ×3 (01:44→19:44)
[2017-05-13] MEDS: IPRATROPIUM 0.5MG/ALBUTEROL 2.5MG INH SOL UD 3ML (DUONEB)(J7620) NEB SCH ×4 (01:50→19:44)
[2017-05-13 06:00] VITALS: BP 113/60
[2017-05-13] MEDS ORDERED: NS 1,000 ML IV SCH (07:15)
--- NOTE | 2017-05-13 07:32 | ECGEPIP ---
Stationary ECG Study [facility] - ED Test Date: 2017-05-12 Pat Name: TONIA DANIELSON Department: Room: - Gender: M Adolescent Specialist: saul : [id number] Requested By: KG BURGESS Order Number: [id number] Reading MD: Lin Carrington Measurements Intervals [place] Rate: 86 P: 44 [place]: 254 QRS: -42 QRSD: 141 T: 9 QT: 374 QTc: 448 Interpretive Statements SINUS RHYTHM WITH FIRST DEGREE AV BLOCK MARKED LEFT AXIS DEVIATION LEFT BUNDLE BRANCH BLOCK PRIOR 05/01/17 PACED Electronically Signed On 05-13-2017 7:32:15 EDT by Lin Carrington
[2017-05-13 08:15] LABS: MEAN CORPUSCULAR HEMOGLOBIN 32.5 pg (27.0-33.0); MEAN CORPUSCULAR HGB CONC 33.7 g/dl (32.0-36.5); MEAN CORPUSCULAR VOLUME 96.3 fl (80.0-96.0); RED CELL DISTRIBUTION WIDTH 12.7 % (11.5-14.5); WHITE BLOOD COUNT 6.3 K/mm3 (4.0-10.0)
[2017-05-13 08:35] LABS: BASOPHILS 1 % (0-4)
[2017-05-13 08:39] LABS: ANION GAP 8 MEQ/L (8-16); BLOOD UREA NITROGEN 10 MG/DL (7-18); CALCIUM LEVEL 7.6 MG/DL (8.8-10.2); CARBON DIOXIDE LEVEL 28 MEQ/L (21-32); CHLORIDE LEVEL 92 MEQ/L (98-107); CREATININE FOR GFR 0.33 MG/DL (0.70-1.30); GLOMERULAR FILTRATION RATE > 60.0 (>35); GLUCOSE, FASTING 64 MG/DL (83-110); POTASSIUM SERUM 4.3 MEQ/L (3.5-5.1); SODIUM LEVEL 128 MEQ/L (136-145)
[2017-05-13] MEDS ORDERED: ENOXAPARIN 40 MG/0.4 ML SYRINGE (J1650) SC SCH (09:00)
[2017-05-13] MEDS: VITAMIN D 1,000 INTERNATIONAL UNITS TABLET PO SCH (09:46)
[2017-05-13] MEDS: ASCORBIC ACID 500 MG TAB PO SCH (09:46)
[2017-05-13] MEDS: RIVAROXABAN 15 MG TAB (XARELTO) PO SCH (09:46)
[2017-05-13] MEDS: MAGNESIUM OXIDE 400 MG TAB (MAG-OX) PO SCH ×2 (09:46→21:57)
[2017-05-13] MEDS: FINASTERIDE 5 MG TAB PO SCH (09:47)
[2017-05-13] MEDS: levETIRAcetam 250MG TABLET (KEPPRA) PO SCH ×2 (09:47→21:57)
--- NOTE | 2017-05-13 10:52 | IPNPDOC ---
Subjective Date Seen The patient was seen on 05/13/17. Subjective Chief Complaint/HPI The patient is a 87-year-old male admitted with a reason for visit of Weakness, Hyponatremia,Lung Mass. General: Reports: Fatigue, Malaise, Denies: Chills, Night Sweats Constitutional: Denies: Chills, Fever Eyes: Denies: Pain, Vision change ENT: Denies: Head Aches, Ear Pain Skin: Denies: Rash, Lesions Pulmonary: Denies: Dyspnea, Cough Cardiovascular: Denies: Chest Pain, Palpitations Gastrointestinal: Denies: Nausea, Vomiting Genitourinary: Denies: Dysuria, Frequency Hematologic: Denies: Bruising, Bleeding Excessively Objective Physical Examination General Exam: Positive: Alert, Cooperative, No Acute Distress ENT Exam: Positive: Atraumatic, Mucous membr. 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, SIADH Serum Na has ranged between 120-133, usually around 126-128 over last 6+ months Serum Sodium has trended upward appropriately to 128 this am following gentle IVF hydration No overt symptoms or source of infectious etiology noted at this time PFS consulted for possible placement of the patient as he has been living independently but has been having increasing difficulty with ADL's--PT consulted Lung mass Initially diagnosed in September 2016, patient states that he does not want any invasive or interventional treatment at this time. He reports that he has been following up with this with his primary care physician, and plans to follow-up with radiology in the near future. Atrial Fibrillation, stable Rate controlled Continue Xarelto COPD, stable Continue Symbicort, albuterol BPH Continue finasteride CAD/possible diastolic congestive heart failure On Xarelto, spironolactone Hypertension, controlled Continue current regimen DVT prophylaxis Already on anticoagulation Disposition-PFS consulted for possible placement, we will follow up for further delineation of care. VS, I&O, 24H, Fishbone Vital Signs/I&O Vital Signs Date Time Temp Pulse Resp B/P (MAP) Pulse Ox O2 Delivery O2 Flow Rate FiO2 05/13/17 06:00 97.4 81 20 113/60 (77) 94 Nasal Cannula 2.0 I&O- Last 24 Hours up to 6 AM 05/13/17 06:00 Intake Total 1790 ml Output Total 400 ml Balance 1390 ml Laboratory Data 24H LABS Laboratory Tests 2 05/12/17 14:39: White Blood Count 8.4, Red Blood Count 4.02L, Hemoglobin 13.1L, Hematocrit 38.3L , Mean Corpuscular Volume 95.3, Mean Corpuscular Hemoglobin 32.6, Mean Corpuscular Hemoglobin Concent 34.2, Red Cell Distribution Width 12.3, Platelet Count 341, Neutrophils (%) (Auto) 90.2H, Lymphocytes (%) (Auto) 4.1L, Monocytes (%) (Auto) 3.9, Eosinophils (%) (Auto) 0.4, Basophils (%) (Auto) 0.3, Neutrophils # (Auto) 7.6, Lymphocytes # (Auto) 0.4L, Monocytes # (Auto) 0.3, Eosinophils # (Auto) 0.0, Basophils # (Auto) 0.0, Large Unclassified Cells % 1.1 , Large Unclassified Cells # 0.1, Prothrombin Time 14.6H, Prothromb Time International Ratio 1.13, Anion Gap 8, Glomerular Filtration Rate > 60.0, Lactic Acid Level 1.5, Blood Urea Nitrogen 15, Creatinine 0.52L, Sodium Level 123L, Potassium Level 4.6, Chloride Level 86L, Carbon Dioxide Level 29, Calcium Level 8.1L, Total Creatine Kinase 53, Aspartate Amino Transf (AST/SGOT) 28, Alanine Aminotransferase (ALT/SGPT) 25, Alkaline Phosphatase 128H, Total Bilirubin 0.4, Direct Bilirubin 0.1, Creatine Kinase MB 2.1, Creatine Kinase MB Relative Index 3.96, Troponin I < 0.02, C-Reactive Protein, Quantitative 8.94H, B-Type Natriuretic Peptide 355H, Total Protein 6.8, Albumin 3.0L, Albumin/ Globulin Ratio 0.79L, Thyroid Stimulating Hormone (TSH) 1.290, Thyroxine (T4) 7.6 05/12/17 18:11: Osmolality 258L 05/12/17 18:12: Urine Random Osmolality 610, Urine Random Creatinine 103.0, Urine Random Total Protein 30.1H, Urine Random Sodium 57, Urine Random Potassium 86.2, Urine Random Chloride 108, Urine Random Uric Acid 63.8 05/13/17 00:16: Anion Gap 7L, Glomerular Filtration Rate > 60.0, Blood Urea Nitrogen 10, Creatinine 0.43L, Sodium Level 128L, Potassium Level 4.2, Chloride Level 92L, Carbon Dioxide Level 29, Calcium Level 7.7L 05/13/17 06:11: Urine Appearance CLEAR, Urine Color YELLOW, Urine pH 6.0, Urine Specific [place] 1.010, Urine Protein NEGATIVE, Urine Glucose (UA) NEGATIVE, Urine Ketones 1+H, Urine Urobilinogen 0.2, Urine Bilirubin NEGATIVE, Urine Leukocyte Esterase NEGATIVE, Urine Blood NEGATIVE, Urine Nitrite NEGATIVE, Urine WBC (Auto ) 0, Urine RBC (Auto) 7H, Urine Hyaline Casts (Auto) 0, Urine Bacteria (Auto) NEGATIVE, Urine Squamous Epithelial Cells 0, Urine Sperm (Auto) 05/13/17 07:35: Neutrophils 75, Lymphocytes (Manual) 10L, Monocytes (Manual) 12H, Basophils ( Manual) 1, Atypical Lymphocytes 2, Platelet Estimate NORMAL, Red Blood Cell Morphology NORMAL, Anion Gap 8, Glomerular Filtration Rate > 60.0, Blood Urea Nitrogen 10, Creatinine 0.33L, Sodium Level 128L, Potassium Level 4.3, Chloride Level 92L, Carbon Dioxide Level 28, Calcium Level 7.6L CBC/BMP Laboratory Tests 05/12/17 14:39 Red Blood Count 4.02 L, Mean Corpuscular Volume 95.3, Mean Corpuscular Hemoglobin 32.6, Mean Corpuscular Hemoglobin Concent 34.2, Red Cell Distribution Width 12.3, Neutrophils (%) (Auto) 90.2 H, Lymphocytes (%) (Auto) 4.1 L, Monocytes (%) (Auto) 3.9, Eosinophils (%) (Auto) 0.4, Basophils (%) (Auto ) 0.3, Neutrophils # (Auto) 7.6, Lymphocytes # (Auto) 0.4 L, Monocytes # (Auto) 0.3, Eosinophils # (Auto) 0.0, Basophils # (Auto) 0.0, Calcium Level 8.1 L, Total Creatine Kinase 53 05/13/17 00:16 Calcium Level 7.7 L 05/13/17 07:35 Calcium Level 7.6 L Microbiology Microbiology 05/12/17 Blood Culture, Received Pending 05/12/17 Blood Culture, Received Pending 05/12/17 Gram Stain - Final, Resulted 05/12/17 Sputum Culture, Resulted Pending LUCAS AGUIRRE MD May 13, 2017 10:52
[2017-05-13 14:00] VITALS: BP 160/60
[2017-05-13] MEDS ORDERED: TUBERCULIN PPD 5 UNITS/0.1 ML ID ONE (14:00)
[2017-05-13] MEDS: SPIRONOLACTONE 25 MG TAB PO SCH (21:58)
[2017-05-13 22:00] VITALS: BP 111/55
[2017-05-14] MEDS: IPRATROPIUM 0.5MG/ALBUTEROL 2.5MG INH SOL UD 3ML (DUONEB)(J7620) NEB SCH ×4 (01:01→20:00)
[2017-05-14 06:00] VITALS: BP 113/55
[2017-05-14 06:47] LABS: ALBUMIN 2.4 GM/DL (3.2-5.2); ALBUMIN/GLOBULIN RATIO 0.92 (1.00-1.93); ALKALINE PHOSPHATASE 122 U/L (45-117); ALT/SGPT 22 U/L (12-78); ANION GAP 6 MEQ/L (8-16); AST/SGOT 23 U/L (15-37); BILIRUBIN,TOTAL 0.3 MG/DL (0.2-1.0); BLOOD UREA NITROGEN 10 MG/DL (7-18); CALCIUM LEVEL 7.7 MG/DL (8.8-10.2); CARBON DIOXIDE LEVEL 32 MEQ/L (21-32); CHLORIDE LEVEL 92 MEQ/L (98-107); GLOMERULAR FILTRATION RATE > 60.0 (>35); GLUCOSE, FASTING 97 MG/DL (83-110); POTASSIUM SERUM 4.4 MEQ/L (3.5-5.1); SODIUM LEVEL 130 MEQ/L (136-145)
[2017-05-14] MEDS: SYMBICORT 160/4.5MCG INHALER 6GM INH SCH ×2 (07:43→19:30)
[2017-05-14] MEDS ORDERED: PREVNAR 13 VACCINE SYRINGE (CPT CODE:90670) IM SCH (09:00)
--- NOTE | 2017-05-14 09:24 | IPNPDOC ---
Subjective Date Seen The patient was seen on 05/14/17. Subjective Chief Complaint/HPI The patient is a 87-year-old male admitted with a reason for visit of Weakness, Hyponatremia,Lung Mass. General: Denies: Chills, Night Sweats Constitutional: Denies: Chills, Fever Eyes: Denies: Pain, Vision change ENT: Denies: Head Aches, Ear Pain Skin: Denies: Rash, Lesions Pulmonary: Denies: Dyspnea, Cough Cardiovascular: Denies: Chest Pain, Palpitations Gastrointestinal: Denies: Nausea, Vomiting Genitourinary: Denies: Dysuria, Frequency Hematologic: Denies: Bruising, Bleeding Excessively Objective Physical Examination General Exam: Positive: Alert, Cooperative, No Acute Distress ENT Exam: Positive: Atraumatic, Mucous membr. 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, SIADH Serum Na has ranged between 120-133, usually around 126-128 over last 6+ months Serum Sodium has trended upward appropriately to 130 this am No overt symptoms or source of infectious etiology noted at this time PFS consulted for possible placement of the patient as he has been living independently but has been having increasing difficulty with ADL's--PT consulted Lung mass Initially diagnosed in September 2016, patient states that he does not want any invasive or interventional treatment at this time. He reports that he has been following up with this with his primary care physician, and plans to follow-up with radiology in the near future. Atrial Fibrillation, stable Rate controlled Continue Xarelto COPD, stable Continue Symbicort, albuterol BPH Continue finasteride CAD/possible diastolic congestive heart failure On Xarelto, spironolactone Hypertension, controlled Continue current regimen DVT prophylaxis Already on anticoagulation Disposition-PFS consulted for possible placement, we will follow up for further delineation of care. VS, I&O, 24H, Fishbone Vital Signs/I&O Vital Signs Date Time Temp Pulse Resp B/P (MAP) Pulse Ox O2 Delivery O2 Flow Rate FiO2 05/14/17 06:00 98.1 74 18 113/55 (74) 95 Nasal Cannula 2.0 I&O- Last 24 Hours up to 6 AM 05/14/17 06:00 Intake Total 2240 ml Output Total 1405 ml Balance 835 ml Laboratory Data 24H LABS Laboratory Tests 2 05/14/17 05:36: Anion Gap 6L, Glomerular Filtration Rate > 60.0, Blood Urea Nitrogen 10, Creatinine 0.40L, Sodium Level 130L, Potassium Level 4.4, Chloride Level 92L, Carbon Dioxide Level 32, Calcium Level 7.7L, Aspartate Amino Transf (AST/SGOT) 23, Alanine Aminotransferase (ALT/SGPT) 22, Alkaline Phosphatase 122H, Total Bilirubin 0.3, Total Protein 5.0#L, Albumin 2.4L, Albumin/Globulin Ratio 0.92L CBC/BMP Laboratory Tests 05/14/17 05:36 Calcium Level 7.7 L, Aspartate Amino Transf (AST/SGOT) 23, Alanine Aminotransferase (ALT/SGPT) 22, Alkaline Phosphatase 122 H, Total Bilirubin 0.3 , Total Protein 5.0 #L, Albumin 2.4 L Microbiology Microbiology 05/12/17 Blood Culture - Preliminary, Resulted No growth after 24 hours . All specim... 05/12/17 Blood Culture - Preliminary, Resulted No growth after 24 hours . All specim... 05/12/17 Gram Stain - Final, Resulted 05/12/17 Sputum Culture, Resulted Pending LUCAS AGUIRRE MD May 14, 2017 09:24
[2017-05-14] MEDS: VITAMIN D 1,000 INTERNATIONAL UNITS TABLET PO SCH (10:54)
[2017-05-14] MEDS: levETIRAcetam 250MG TABLET (KEPPRA) PO SCH ×2 (10:54→20:33)
[2017-05-14] MEDS: MAGNESIUM OXIDE 400 MG TAB (MAG-OX) PO SCH ×2 (10:54→20:33)
[2017-05-14] MEDS: ASCORBIC ACID 500 MG TAB PO SCH (10:54)
[2017-05-14] MEDS: RIVAROXABAN 15 MG TAB (XARELTO) PO SCH (10:55)
[2017-05-14] MEDS: FINASTERIDE 5 MG TAB PO SCH (10:55)
[2017-05-14 14:00] VITALS: BP 115/59
[2017-05-14] MEDS: SPIRONOLACTONE 25 MG TAB PO SCH (20:33)
[2017-05-14 22:00] VITALS: BP 143/74
[2017-05-15] MEDS: IPRATROPIUM 0.5MG/ALBUTEROL 2.5MG INH SOL UD 3ML (DUONEB)(J7620) NEB SCH ×4 (01:23→19:14)
[2017-05-15 05:45] LABS: MEAN CORPUSCULAR HEMOGLOBIN 32.1 pg (27.0-33.0); MEAN CORPUSCULAR HGB CONC 33.6 g/dl (32.0-36.5); MEAN CORPUSCULAR VOLUME 95.6 fl (80.0-96.0); RED CELL DISTRIBUTION WIDTH 12.7 % (11.5-14.5); WHITE BLOOD COUNT 6.8 K/mm3 (4.0-10.0)
[2017-05-15 06:00] VITALS: BP 124/56
[2017-05-15 06:05] LABS: ALBUMIN 2.5 GM/DL (3.2-5.2); ALBUMIN/GLOBULIN RATIO 0.76 (1.00-1.93); ALKALINE PHOSPHATASE 121 U/L (45-117); ALT/SGPT 27 U/L (12-78); ANION GAP 5 MEQ/L (8-16); AST/SGOT 26 U/L (15-37); BILIRUBIN,TOTAL 0.3 MG/DL (0.2-1.0); BLOOD UREA NITROGEN 7 MG/DL (7-18); CALCIUM LEVEL 8.1 MG/DL (8.8-10.2); CARBON DIOXIDE LEVEL 33 MEQ/L (21-32); CHLORIDE LEVEL 91 MEQ/L (98-107); CREATININE FOR GFR 0.41 MG/DL (0.70-1.30); GLOMERULAR FILTRATION RATE > 60.0 (>35); GLUCOSE, FASTING 92 MG/DL (83-110); POTASSIUM SERUM 4.4 MEQ/L (3.5-5.1); SODIUM LEVEL 129 MEQ/L (136-145); TOTAL PROTEIN 5.8 GM/DL (6.4-8.2)
[2017-05-15] MEDS: SYMBICORT 160/4.5MCG INHALER 6GM INH SCH ×2 (08:18→19:14)
--- NOTE | 2017-05-15 09:56 | IPNPDOC ---
Subjective Date Seen The patient was seen on 05/15/17. Subjective Chief Complaint/HPI The patient is a 87-year-old male admitted with a reason for visit of Weakness, Hyponatremia,Lung Mass. General: Denies: Chills, Night Sweats Constitutional: Denies: Chills, Fever Eyes: Denies: Pain, Vision change ENT: Denies: Head Aches, Ear Pain Skin: Denies: Rash, Lesions Pulmonary: Denies: Dyspnea, Cough Cardiovascular: Denies: Chest Pain, Palpitations Gastrointestinal: Denies: Nausea, Vomiting Genitourinary: Denies: Dysuria, Frequency Hematologic: Denies: Bruising, Bleeding Excessively Objective Physical Examination General Exam: Positive: Alert, Cooperative, No Acute Distress ENT Exam: Positive: Atraumatic, Mucous membr. 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 He reports that he has been following up with this with his primary care physician, and plans to follow-up with radiology in the near future. Atrial Fibrillation, stable Rate controlled Continue Xarelto COPD, stable Continue Symbicort, albuterol BPH Continue finasteride CAD/possible diastolic congestive heart failure On Xarelto, spironolactone Hypertension, controlled Continue current regimen DVT prophylaxis Already on anticoagulation Disposition-PFS on board for possible placement, we will follow up for further delineation of care. VS, I&O, 24H, Fishbone Vital Signs/I&O Vital Signs Date Time Temp Pulse Resp B/P (MAP) Pulse Ox O2 Delivery O2 Flow Rate FiO2 05/15/17 06:00 98.6 66 18 124/56 (78) 93 Nasal Cannula 2.0 I&O- Last 24 Hours up to 6 AM 05/15/17 06:00 Intake Total 1800 ml Output Total 1500 ml Balance 300 ml Laboratory Data 24H LABS Laboratory Tests 2 05/15/17 05:18: Anion Gap 5L, Glomerular Filtration Rate > 60.0, Blood Urea Nitrogen 7, Creatinine 0.41L, Sodium Level 129L, Potassium Level 4.4, Chloride Level 91L, Carbon Dioxide Level 33H, Calcium Level 8.1L, Aspartate Amino Transf (AST/SGOT) 26, Alanine Aminotransferase (ALT/SGPT) 27, Alkaline Phosphatase 121H, Total Bilirubin 0.3, Total Protein 5.8L, Albumin 2.5L, Albumin/Globulin Ratio 0.76L CBC/BMP Laboratory Tests 05/15/17 05:18 Red Blood Count 3.65 L, Mean Corpuscular Volume 95.6, Mean Corpuscular Hemoglobin 32.1, Mean Corpuscular Hemoglobin Concent 33.6, Red Cell Distribution Width 12.7, Calcium Level 8.1 L, Aspartate Amino Transf (AST/SGOT) 26, Alanine Aminotransferase (ALT/SGPT) 27, Alkaline Phosphatase 121 H, Total Bilirubin 0.3, Total Protein 5.8 L, Albumin 2.5 L Microbiology Microbiology 05/12/17 Blood Culture - Preliminary, Resulted No Growth after 48 hours. All Specime... 05/12/17 Blood Culture - Preliminary, Resulted No Growth after 48 hours. All Specime... 05/12/17 Gram Stain - Final, Complete 05/12/17 Sputum Culture - Final, Complete Enterobacter Cloacae Complex Yeast Like Organism LUCAS AGUIRRE MD May 15, 2017 09:56
[2017-05-15] MEDS: MAGNESIUM OXIDE 400 MG TAB (MAG-OX) PO SCH ×2 (10:09→20:36)
[2017-05-15] MEDS: VITAMIN D 1,000 INTERNATIONAL UNITS TABLET PO SCH (10:09)
[2017-05-15] MEDS: ASCORBIC ACID 500 MG TAB PO SCH (10:10)
[2017-05-15] MEDS: FINASTERIDE 5 MG TAB PO SCH (10:10)
[2017-05-15] MEDS: levETIRAcetam 250MG TABLET (KEPPRA) PO SCH ×2 (10:10→20:36)
[2017-05-15] MEDS: RIVAROXABAN 15 MG TAB (XARELTO) PO SCH (10:10)
[2017-05-15] MEDS ORDERED: PPD DOCUMENTATION ENTRY MISC XX SCH (14:00)
[2017-05-15 16:00] VITALS: BP 98/50
[2017-05-15] MEDS: SPIRONOLACTONE 25 MG TAB PO SCH (20:36)
[2017-05-15 22:00] VITALS: BP 122/62
[2017-05-16 06:00] VITALS: BP 141/67
[2017-05-16 06:29] LABS: ALBUMIN 2.4 GM/DL (3.2-5.2); ALBUMIN/GLOBULIN RATIO 0.69 (1.00-1.93); ALKALINE PHOSPHATASE 126 U/L (45-117); ALT/SGPT 28 U/L (12-78); ANION GAP 3 MEQ/L (8-16); AST/SGOT 23 U/L (15-37); BILIRUBIN,TOTAL 0.3 MG/DL (0.2-1.0); BLOOD UREA NITROGEN 9 MG/DL (7-18); CALCIUM LEVEL 8.2 MG/DL (8.8-10.2); CARBON DIOXIDE LEVEL 35 MEQ/L (21-32); CHLORIDE LEVEL 92 MEQ/L (98-107); CREATININE FOR GFR 0.47 MG/DL (0.70-1.30); GLOMERULAR FILTRATION RATE > 60.0 (>35); GLUCOSE, FASTING 88 MG/DL (83-110); POTASSIUM SERUM 4.7 MEQ/L (3.5-5.1); SODIUM LEVEL 130 MEQ/L (136-145); TOTAL PROTEIN 5.9 GM/DL (6.4-8.2)
[2017-05-16] MEDS: FINASTERIDE 5 MG TAB PO SCH (07:54)
[2017-05-16] MEDS: RIVAROXABAN 15 MG TAB (XARELTO) PO SCH (07:54)
[2017-05-16] MEDS: levETIRAcetam 250MG TABLET (KEPPRA) PO SCH ×2 (07:54→21:09)
[2017-05-16] MEDS: MAGNESIUM OXIDE 400 MG TAB (MAG-OX) PO SCH ×2 (07:55→21:09)
[2017-05-16] MEDS: VITAMIN D 1,000 INTERNATIONAL UNITS TABLET PO SCH (07:55)
[2017-05-16] MEDS: ASCORBIC ACID 500 MG TAB PO SCH (07:55)
[2017-05-16] MEDS: IPRATROPIUM 0.5MG/ALBUTEROL 2.5MG INH SOL UD 3ML (DUONEB)(J7620) NEB SCH ×3 (08:00→20:00)
[2017-05-16] MEDS: SYMBICORT 160/4.5MCG INHALER 6GM INH SCH ×2 (08:14→19:22)
--- NOTE | 2017-05-16 08:50 | IPNPDOC ---
Subjective Date Seen The patient was seen on 05/16/17. Subjective Chief Complaint/HPI The patient is a 87-year-old male admitted with a reason for visit of Weakness, Hyponatremia,Lung Mass. General: Denies: Chills, Night Sweats Constitutional: Denies: Chills, Fever Eyes: Denies: Pain, Vision change ENT: Denies: Head Aches, Ear Pain Skin: Denies: Rash, Lesions Pulmonary: Denies: Dyspnea, Cough Cardiovascular: Denies: Chest Pain, Palpitations Gastrointestinal: Denies: Nausea, Vomiting Genitourinary: Denies: Dysuria, Frequency Hematologic: Denies: Bruising, Bleeding Excessively Objective Physical Examination General Exam: Positive: Alert, Cooperative, No Acute Distress ENT Exam: Positive: Atraumatic, Mucous membr. 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, SIADH Serum Na has ranged between 120-133, usually around 126-128 over last 6+ months Serum Sodium has trended upward appropriately to 130 this am No overt symptoms or source of infectious etiology noted at this time Patient back to feeling his baseline at this time and notes that he has been ambulating the corridor with his rolling walker without any difficulties PFS consulted for possible placement of the patient as he has been living independently but has been having increasing difficulty with ADL's--PT consulted Lung mass Initially diagnosed in September 2016, patient states that he does not want any invasive or interventional treatment at this time. He reports that he has been following up with this with his primary care physician, and plans to follow-up with radiology in the near future. Atrial Fibrillation, stable Rate controlled Continue Xarelto COPD, stable Continue Symbicort, albuterol BPH Continue finasteride CAD/possible diastolic congestive heart failure On Xarelto, spironolactone Hypertension, controlled Continue current regimen DVT prophylaxis Already on anticoagulation Disposition-PFS on board for possible placement, we will follow up for further delineation of care. We will transition the patient to ALC status today. VS, I&O, 24H, Fishbone Vital Signs/I&O Vital Signs Date Time Temp Pulse Resp B/P (MAP) Pulse Ox O2 Delivery O2 Flow Rate FiO2 05/16/17 06:00 97.5 63 18 141/67 (91) 95 Nasal Cannula 2.0 I&O- Last 24 Hours up to 6 AM 05/16/17 06:00 Intake Total 1860 ml Output Total 1750 ml Balance 110 ml Laboratory Data 24H LABS Laboratory Tests 2 05/16/17 05:26: Anion Gap 3L, Glomerular Filtration Rate > 60.0, Blood Urea Nitrogen 9, Creatinine 0.47L, Sodium Level 130L, Potassium Level 4.7, Chloride Level 92L, Carbon Dioxide Level 35H, Calcium Level 8.2L, Aspartate Amino Transf (AST/SGOT) 23, Alanine Aminotransferase (ALT/SGPT) 28, Alkaline Phosphatase 126H, Total Bilirubin 0.3, Total Protein 5.9L, Albumin 2.4L, Albumin/Globulin Ratio 0.69L CBC/BMP Laboratory Tests 05/16/17 05:26 Calcium Level 8.2 L, Aspartate Amino Transf (AST/SGOT) 23, Alanine Aminotransferase (ALT/SGPT) 28, Alkaline Phosphatase 126 H, Total Bilirubin 0.3 , Total Protein 5.9 L, Albumin 2.4 L Microbiology Microbiology 05/12/17 Blood Culture - Preliminary, Resulted No Growth after 72 hours. All specime... 05/12/17 Blood Culture - Preliminary, Resulted No Growth after 72 hours. All specime... 05/12/17 Gram Stain - Final, Complete 05/12/17 Sputum Culture - Final, Complete Enterobacter Cloacae Complex Yeast Like Organism LUCAS AGUIRRE MD May 16, 2017 08:50
[2017-05-16] MEDS: SPIRONOLACTONE 25 MG TAB PO SCH (21:08)
[2017-05-16 22:00] VITALS: BP 119/57
[2017-05-17] MEDS: IPRATROPIUM 0.5MG/ALBUTEROL 2.5MG INH SOL UD 3ML (DUONEB)(J7620) NEB SCH ×5 (01:12→19:26)
[2017-05-17 06:00] VITALS: BP 119/57
[2017-05-17 06:21] LABS: ALBUMIN 2.6 GM/DL (3.2-5.2); ALBUMIN/GLOBULIN RATIO 0.72 (1.00-1.93); ALKALINE PHOSPHATASE 138 U/L (45-117); ALT/SGPT 34 U/L (12-78); ANION GAP 7 MEQ/L (8-16); AST/SGOT 27 U/L (15-37); BILIRUBIN,TOTAL 0.4 MG/DL (0.2-1.0); BLOOD UREA NITROGEN 10 MG/DL (7-18); CALCIUM LEVEL 8.5 MG/DL (8.8-10.2); CARBON DIOXIDE LEVEL 32 MEQ/L (21-32); CHLORIDE LEVEL 90 MEQ/L (98-107); CREATININE FOR GFR 0.42 MG/DL (0.70-1.30); GLOMERULAR FILTRATION RATE > 60.0 (>35); GLUCOSE, FASTING 85 MG/DL (83-110); POTASSIUM SERUM 4.3 MEQ/L (3.5-5.1); SODIUM LEVEL 129 MEQ/L (136-145); TOTAL PROTEIN 6.2 GM/DL (6.4-8.2)
[2017-05-17] MEDS: MAGNESIUM OXIDE 400 MG TAB (MAG-OX) PO SCH ×2 (08:11→20:25)
[2017-05-17] MEDS: FINASTERIDE 5 MG TAB PO SCH (08:12)
[2017-05-17] MEDS: levETIRAcetam 250MG TABLET (KEPPRA) PO SCH ×2 (08:12→20:24)
[2017-05-17] MEDS: ASCORBIC ACID 500 MG TAB PO SCH (08:12)
[2017-05-17] MEDS: RIVAROXABAN 15 MG TAB (XARELTO) PO SCH (08:12)
[2017-05-17] MEDS: VITAMIN D 1,000 INTERNATIONAL UNITS TABLET PO SCH (08:13)
[2017-05-17] MEDS: SYMBICORT 160/4.5MCG INHALER 6GM INH SCH ×2 (08:19→19:27)
[2017-05-17] MEDS: SPIRONOLACTONE 25 MG TAB PO SCH (20:25)
[2017-05-18] MEDS: IPRATROPIUM 0.5MG/ALBUTEROL 2.5MG INH SOL UD 3ML (DUONEB)(J7620) NEB SCH ×4 (01:07→20:00)
[2017-05-18 06:00] VITALS: BP 126/62
[2017-05-18 06:33] LABS: MEAN CORPUSCULAR HEMOGLOBIN 31.6 pg (27.0-33.0); MEAN CORPUSCULAR VOLUME 95.7 fl (80.0-96.0); RED CELL DISTRIBUTION WIDTH 12.3 % (11.5-14.5)
[2017-05-18 06:49] LABS: ALBUMIN 2.6 GM/DL (3.2-5.2); ALBUMIN/GLOBULIN RATIO 0.72 (1.00-1.93); ALKALINE PHOSPHATASE 128 U/L (45-117); ALT/SGPT 32 U/L (12-78); ANION GAP 5 MEQ/L (8-16); AST/SGOT 24 U/L (15-37); BILIRUBIN,TOTAL 0.5 MG/DL (0.2-1.0); BLOOD UREA NITROGEN 12 MG/DL (7-18); CALCIUM LEVEL 8.6 MG/DL (8.8-10.2); CARBON DIOXIDE LEVEL 33 MEQ/L (21-32); CHLORIDE LEVEL 91 MEQ/L (98-107); CREATININE FOR GFR 0.39 MG/DL (0.70-1.30); GLOMERULAR FILTRATION RATE > 60.0 (>35); GLUCOSE, FASTING 89 MG/DL (83-110); POTASSIUM SERUM 4.3 MEQ/L (3.5-5.1); SODIUM LEVEL 129 MEQ/L (136-145); TOTAL PROTEIN 6.2 GM/DL (6.4-8.2)
[2017-05-18] MEDS: RIVAROXABAN 15 MG TAB (XARELTO) PO SCH ×2 (08:19→09:45)
[2017-05-18] MEDS: ASCORBIC ACID 500 MG TAB PO SCH (08:35)
[2017-05-18] MEDS: MAGNESIUM OXIDE 400 MG TAB (MAG-OX) PO SCH ×2 (08:36→21:18)
[2017-05-18] MEDS: levETIRAcetam 250MG TABLET (KEPPRA) PO SCH ×2 (08:36→21:18)
[2017-05-18] MEDS: FINASTERIDE 5 MG TAB PO SCH (08:36)
[2017-05-18] MEDS: VITAMIN D 1,000 INTERNATIONAL UNITS TABLET PO SCH (08:36)
[2017-05-18] MEDS: SYMBICORT 160/4.5MCG INHALER 6GM INH SCH ×2 (08:46→20:23)
[2017-05-18] MEDS: SPIRONOLACTONE 25 MG TAB PO SCH (21:18)
[2017-05-18 22:00] VITALS: BP 118/56
[2017-05-19] MEDS: IPRATROPIUM 0.5MG/ALBUTEROL 2.5MG INH SOL UD 3ML (DUONEB)(J7620) NEB SCH ×2 (00:23→07:50)
[2017-05-19 05:52] LABS: ALBUMIN 2.6 GM/DL (3.2-5.2); ALBUMIN/GLOBULIN RATIO 0.72 (1.00-1.93); ALKALINE PHOSPHATASE 127 U/L (45-117); ALT/SGPT 35 U/L (12-78); ANION GAP 5 MEQ/L (8-16); AST/SGOT 27 U/L (15-37); BILIRUBIN,TOTAL 0.4 MG/DL (0.2-1.0); BLOOD UREA NITROGEN 13 MG/DL (7-18); CALCIUM LEVEL 8.5 MG/DL (8.8-10.2); CARBON DIOXIDE LEVEL 33 MEQ/L (21-32); CHLORIDE LEVEL 92 MEQ/L (98-107); CREATININE FOR GFR 0.39 MG/DL (0.70-1.30); GLOMERULAR FILTRATION RATE > 60.0 (>35); GLUCOSE, FASTING 91 MG/DL (83-110); POTASSIUM SERUM 4.5 MEQ/L (3.5-5.1); SODIUM LEVEL 130 MEQ/L (136-145); TOTAL PROTEIN 6.2 GM/DL (6.4-8.2)
[2017-05-19 06:00] VITALS: BP 102/50
[2017-05-19] MEDS: SYMBICORT 160/4.5MCG INHALER 6GM INH SCH (07:49)
[2017-05-19] MEDS: ASCORBIC ACID 500 MG TAB PO SCH (09:18)
[2017-05-19] MEDS: levETIRAcetam 250MG TABLET (KEPPRA) PO SCH (09:18)
[2017-05-19] MEDS: RIVAROXABAN 15 MG TAB (XARELTO) PO SCH (09:18)
[2017-05-19] MEDS: VITAMIN D 1,000 INTERNATIONAL UNITS TABLET PO SCH (09:18)
[2017-05-19] MEDS: MAGNESIUM OXIDE 400 MG TAB (MAG-OX) PO SCH (09:19)
[2017-05-19] MEDS: FINASTERIDE 5 MG TAB PO SCH (09:19)
--- NOTE | 2017-05-23 17:43 | DSES ---
DATE OF ADMISSION: 05/12/2017 DATE OF DISCHARGE: 05/19/2017 CONSULTANTS: None. PROCEDURES: None. COMPLICATIONS: None. DISCHARGE DIAGNOSES: 1. Generalized weakness and lethargy secondary to hypovolemic hyponatremia. 2. Lung mass. 3. Atrial fibrillation. 4. Chronic obstructive pulmonary disease (COPD). 5. Benign prostatic hypertrophy. 6. Coronary artery disease. 7. Possible diastolic congestive heart failure. 8. Hypertension. HOSPITALIZATION COURSE: Patient is an 87-year-old male who presented to [facility] on 06/11/2017, for generalized weakness. Patient was found to be in hypovolemia and hyponatremia. Patient was started on fluid supplements. Patient's lung mass was initially diagnosed in September 2016. The issue was re-addressed with the patient but patient refused further investigations. Patient symptoms improved with correcting the electrolyte abnormalities. Patient followed with physical therapy. Due to increased difficulty with daily functions, case picker and social media developer have been consulted for possible placement. On 05/19/2017, patient is discharged to [facility] to continue rehabilitation. Patient is recommended to followup with primary care provider, Dr. Siu, to discuss patient's lung mass. OBJECTIVE: VITAL SIGNS: Temperature 98.6, pulse 74, respirations 20, blood pressure 102/50, pulse oximetry 92% with 2 liters nasal cannula. LABORATORY DATA: WBC 10, hemoglobin 12.2, hematocrit 37, platelet count 358. Sodium 130, potassium 4.5, chloride 92, carbon dioxide 33, BUN 13, creatinine 0.39, GFR greater than 60, fasting glucose 91, calcium 8.5, total bilirubin 0.4, AST 27, ALT 35, alkaline phosphatase 127, total protein 6.2, albumin 2.6. Sputum culture showed positive for Enterobacter cloacae complex and yeast-like organism. Blood culture is negative after 5 days times [address] sets[address] of the head without contrast on 05/12/2017, showed moderate diffuse atrophy. Heavy vascular calcification. No skull fracture or intracranial injury. 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 CT of the chest on 05/12/2017, showed diffuse chronic fibrosis and interstitial disease. Left upper lobe mass. Hilar adenopathy. DISCHARGE MEDICATIONS: - ascorbic acid 500 mg by mouth daily - Symbicort two puff inhalation twice a day - vitamin D3 5000 units by mouth daily - finasteride 5 mg by mouth daily - Keppra 500 mg by mouth twice a day - magnesium oxide 400 mg by mouth twice a day - nitroglycerin 0.4 mg sublingual every 5 minutes as needed for chest pain - pyridoxine 100 mg by mouth daily - Xarelto 15 mg by mouth daily - spironolactone 25 mg by mouth nightly DISCHARGE INSTRUCTIONS: Discontinue lines. Discharge to [facility] for rehabilitation. Activity as per rehabilitation program. Low salt diet as tolerated. Patient should followup with primary care provider, Dr. Lupis Siu, in 1-2 weeks to discuss his lung mass. DISCHARGE CONDITION: Fair. DISCHARGE TIME: Greater than 30 minutes.
== END 2017-05-19 11:32 | DRG 644 ==
LOC: M ED 13:33 → M ED INP 17:36 → M MSPAV 20:43
PROVIDERS: ADMIT Hospitalist; ATTEND Internal Medicine
DX: E22.2 Syndrome of inappropriate secretion of antidiuretic hormone (principal); I50.32 Chronic diastolic (congestive) heart failure; C34.12 Malignant neoplasm of upper lobe, left bronchus or lung; R53.1 Weakness; I11.0 Hypertensive heart disease with heart failure; I48.2 Chronic atrial fibrillation; I25.10 Atherosclerotic heart disease of native coronary artery without angina pectoris; J44.9 Chronic obstructive pulmonary disease, unspecified; Z79.01 Long term (current) use of anticoagulants; I25.2 Old myocardial infarction; N40.0 Benign prostatic hyperplasia without lower urinary tract symptoms; M19.90 Unspecified osteoarthritis, unspecified site; Z87.891 Personal history of nicotine dependence; Z79.899 Other long term (current) drug therapy; Z95.0 Presence of cardiac pacemaker

== ENCOUNTER → 2017-05-25 | Outpatient (REF) | payer MEDICARE ==
[~2017-05-25] MED LIST changes: +LEVA750T7 PO; +MAPA325T2 PO; +MILKSUS PO; +OPTI0.5D5 OU; +OXYC1TAB23 PO
[2017-05-25 11:29] LABS: MEAN CORPUSCULAR HEMOGLOBIN 31.9 pg (27.0-33.0); MEAN CORPUSCULAR HGB CONC 33.5 g/dl (32.0-36.5); MEAN CORPUSCULAR VOLUME 95.5 fl (80.0-96.0); RED CELL DISTRIBUTION WIDTH 12.5 % (11.5-14.5); WHITE BLOOD COUNT 9.3 K/mm3 (4.0-10.0)
[2017-05-25 11:56] LABS: ANION GAP 7 MEQ/L (8-16); BLOOD UREA NITROGEN 16 MG/DL (7-18); CALCIUM LEVEL 8.4 MG/DL (8.8-10.2); CARBON DIOXIDE LEVEL 32 MEQ/L (21-32); CHLORIDE LEVEL 88 MEQ/L (98-107); CREATININE FOR GFR 0.42 MG/DL (0.70-1.30); GLOMERULAR FILTRATION RATE > 60.0 (>35); GLUCOSE, FASTING 67 MG/DL (83-110); POTASSIUM SERUM 4.4 MEQ/L (3.5-5.1); SODIUM LEVEL 127 MEQ/L (136-145)
== END ==
PROVIDERS: ATTEND Internal Medicine
DX: I50.9 Heart failure, unspecified (principal)

== ENCOUNTER → 2017-05-31 | Outpatient (REF) | payer MEDICARE ==
[2017-05-31 09:27] LABS: MEAN CORPUSCULAR HGB CONC 33.6 g/dl (32.0-36.5); RED CELL DISTRIBUTION WIDTH 12.7 % (11.5-14.5)
[2017-05-31 10:09] LABS: ANION GAP 7 MEQ/L (8-16); BLOOD UREA NITROGEN 12 MG/DL (7-18); CALCIUM LEVEL 8.7 MG/DL (8.8-10.2); CARBON DIOXIDE LEVEL 33 MEQ/L (21-32); CHLORIDE LEVEL 89 MEQ/L (98-107); CREATININE FOR GFR 0.39 MG/DL (0.70-1.30); GLOMERULAR FILTRATION RATE > 60.0 (>35); GLUCOSE, FASTING 77 MG/DL (83-110); POTASSIUM SERUM 4.9 MEQ/L (3.5-5.1); SODIUM LEVEL 129 MEQ/L (136-145)
== END ==
PROVIDERS: ATTEND Internal Medicine
DX: I50.9 Heart failure, unspecified (principal)

== ENCOUNTER → 2017-06-21 | Outpatient (REF) ==
[2017-06-21 11:03] LABS: MEAN CORPUSCULAR HEMOGLOBIN 31.4 pg (27.0-33.0); MEAN CORPUSCULAR HGB CONC 33.1 g/dl (32.0-36.5); MEAN CORPUSCULAR VOLUME 95.1 fl (80.0-96.0); RED CELL DISTRIBUTION WIDTH 13.2 % (11.5-14.5); WHITE BLOOD COUNT 10.6 K/mm3 (4.0-10.0)
[2017-06-21 11:32] LABS: ANION GAP 6 MEQ/L (8-16); BLOOD UREA NITROGEN 15 MG/DL (7-18); CALCIUM LEVEL 8.7 MG/DL (8.8-10.2); CARBON DIOXIDE LEVEL 33 MEQ/L (21-32); CHLORIDE LEVEL 92 MEQ/L (98-107); CREATININE FOR GFR 0.63 MG/DL (0.70-1.30); GLOMERULAR FILTRATION RATE > 60.0 (>35); GLUCOSE, FASTING 120 MG/DL (83-110); POTASSIUM SERUM 4.7 MEQ/L (3.5-5.1); SODIUM LEVEL 131 MEQ/L (136-145)
== END ==
PROVIDERS: ATTEND Internal Medicine
DX: I50.9 Heart failure, unspecified (principal)

== ENCOUNTER 2017-08-25 00:10 | Observation (INO) | payer MEDICARE ==
[~2017-08-25] VITALS: Ht 162.6 cm; Wt 53.6 kg
[~2017-08-25 00:10] MED LIST changes: -LEVA750T7 PO; -MAPA325T2 PO; -MILKSUS PO; -OPTI0.5D5 OU; -OXYC1TAB23 PO
[2017-08-25 00:55] LABS: BASO % 0.3 % (0.0-1.0); EOS # 0.1 10^3/uL (0.0-0.50); EOS % 0.6 % (0.0-3.0); IMMATURE GRANULOCYTE % 0.3 % (0-0); LYMPH # 1.2 10^3/uL (1.5-4.5); LYMPH % 8.1 % (24.0-44.0); MEAN CORPUSCULAR HEMOGLOBIN 29.6 pg (27.0-33.0); MEAN CORPUSCULAR HGB CONC 32.8 g/dl (32.0-36.5); MEAN CORPUSCULAR VOLUME 90.1 fl (80.0-96.0); MONO # 1.1 10^3/uL (0.0-0.8); MONO % 7.5 % (0.0-5.0); NEUTROPHILS % 83.2 % (36.0-66.0); PLATELET COUNT, AUTOMATED 349 10^3/uL (150-450); RED CELL DISTRIBUTION WIDTH 14.4 % (11.5-14.5); WHITE BLOOD COUNT 14.4 10^3/uL (4.0-10.0)
[2017-08-25] MEDS ORDERED: IPRATROPIUM 0.5MG/ALBUTEROL 2.5MG INH SOL UD 3ML (DUONEB)(J7620) NEB ONE (01:15)
[2017-08-25 01:20] LABS: ANION GAP 2 MEQ/L (8-16); BLOOD UREA NITROGEN 13 MG/DL (7-18); CALCIUM LEVEL 9.1 MG/DL (8.8-10.2); CARBON DIOXIDE LEVEL 36 MEQ/L (21-32); CHLORIDE LEVEL 90 MEQ/L (98-107); CREATININE FOR GFR 0.48 MG/DL (0.70-1.30); GLOMERULAR FILTRATION RATE > 60.0 (>35); GLUCOSE, FASTING 97 MG/DL (83-110); POTASSIUM SERUM 4.6 MEQ/L (3.5-5.1); SODIUM LEVEL 128 MEQ/L (136-145)
[2017-08-25] MEDS ORDERED: FUROSEMIDE 40 MG/4 ML VIAL (J1940) IV ONE (02:15)
--- NOTE | 2017-08-25 03:06 | ECGEPIP ---
Stationary ECG Study [facility] - ED Test Date: 2017-08-25 Pat Name: TONIA DANIELSON Department: Room: - Gender: M Automotive Brake Technician: rachid : [id number] Requested By: Indio Choudhary Order Number: [id number] Reading MD: Indio Arrington Measurements Intervals [place] Rate: 75 P: 53 [place]: 263 QRS: -52 QRSD: 124 T: 46 QT: 405 QTc: 454 Interpretive Statements SINUS RHYTHM WITH FIRST DEGREE AV BLOCK WITH OCCASIONAL VENTRICULAR PREMATURE COMPLEXES LEFT BUNDLE BRANCH BLOCK LEFT AXIS DEVIATION POOR R WAVE PROGRESSION SIMILAR TO 05/12/17 Electronically Signed On 08-25-2017 3:06:20 EDT by Indio Arrington
[2017-08-25 03:10] LABS: ABG BASE EXCESS 5.6 (-2.0-2.0); ABG PARTIAL PRESSURE CO2 43.1 mmHg (35.0-45.0); ABG STANDARD HCO3 29.4 MEQ/L (22.0-26.0); ABG TOTAL CO2 31.4 MEQ/L (23.0-31.0); ABG pH (ARTERIAL) 7.461 UNITS (7.350-7.450)
[2017-08-25 03:36] VITALS: O2SAT 82
[2017-08-25] MEDS ORDERED: OPTI0.5D5 OU (04:11)
[2017-08-25] MEDS ORDERED: MAPA325T2 PO (04:11)
[2017-08-25] MEDS ORDERED: MILKSUS PO (04:11)
[2017-08-25] MEDS ORDERED: ACETAMINOPHEN TAB 650MG DOSE (2X325MG) PO PRN (04:15)
[2017-08-25] MEDS ORDERED: MOM 30ML SUSPENSION UDC PO PRN (04:15)
[2017-08-25] MEDS ORDERED: IPRATROPIUM 0.5MG/ALBUTEROL 2.5MG INH SOL UD 3ML (DUONEB)(J7620) NEB PRN (04:15)
[2017-08-25] MEDS ORDERED: ISOVUE-370 76% 100ML VIAL (Q9967) As Ordered ONE (04:22)
[2017-08-25] MEDS ORDERED: NORCO, ANEXSIA 5/325MG TABLET (HYDROcodone/ACETAMINOPHEN) PO PRN (04:30)
[2017-08-25] MEDS ORDERED: ONDANSETRON 4MG/2ML VIAL (J2405) IV PRN (04:30)
[2017-08-25] MEDS ORDERED: AZITHROMYCIN INJ 500 MG, VIAL MATE ADAPTER 1 EACH in D5W 250 ML IV SCH (06:00)
--- NOTE | 2017-08-25 06:03 | HPE ---
DATE OF ADMISSION: 08/25/2017 PRIMARY CARE PROVIDER: Dr. Siu. SAFE AND VAULT INSTALLER: Dr. Wheeler. CHIEF COMPLAINT: Left sided chest pain. HISTORY OF PRESENT ILLNESS: This is an 87-year-old male patient with underlying medical history of atrial fibrillation not on anticoagulation, hypertension, congestive heart failure (CHF) with diastolic and systolic dysfunction, ejection fraction of 35%, coronary arterial disease, chronic obstructive pulmonary disease (COPD), was on oxygen before but not on oxygen right now, malignant nodules in the lung left upper lobe refusing any treatment or intervention, history of benign prostatic hypertrophy (BPH), chronic hyponatremia, history of osteoarthritis, history of alcoholism, from assisted living, presented to the hospital with intermittent since 5 p.m. yesterday of left sided sharp chest pain lasting usually about 30 seconds, four or five episodes yesterday with no relieving or exacerbating factor. Patient described the pain as sharp about 5 out of 10. Patient chronically has cough secondary to chronic pulmonary disease, was found to be hypoxic in the emergency room desating down to 80s on room air when ambulating, baseline ambulating with a walker. Denies any diaphoresis. Reported chronic chill. No fevers. Reported chronic cough. Denies any abdominal pain, diarrhea, constipation, nausea or vomiting. No sick contact reported. ALLERGIES: No known drug allergies. PAST MEDICAL HISTORY: Chronic atrial fibrillation on Coumadin. Hypertension. Congestive heart failure (CHF). Coronary arterial disease. Chronic obstructive pulmonary disease (COPD). Malignant lung nodules. Benign prostatic hypertrophy (BPH). Chronic hyponatremia. History of osteoarthritis. Alcoholism. PAST SURGICAL HISTORY: Bilateral cataract. Pacemaker. FAMILY HISTORY: Denies any family history of premature cardiac disease. SOCIAL HISTORY: Ex-smoker, quit 1 year ago, one pack per day smoker history prior. Quit alcohol drinking about 1 year ago as well. REVIEW OF SYSTEMS: Reported chest pain and chronic cough. Also reported transient ischemic attack (TIA) with no residual deficit in May. All other review of system negative. HOME MEDICATION: - acetaminophen 650 by mouth every 4 hours as needed - vitamin C 500 mg by mouth daily - Symbicort 164.5 inhalation twice daily - vitamin D 5000 units by mouth daily - finasteride 5 mg by mouth daily - fish oil one capsule by mouth daily - Keppra 500 mg by mouth twice daily - magnesium oxide 400 mg by mouth twice daily - milk of magnesia by mouth daily as needed - sublingual nitro 0.4 mg sublingual as needed - vitamin B6 by mouth 100 mg daily - Xarelto 15 mg by mouth daily - spironolactone 25 mg by mouth daily PHYSICAL EXAMINATION: Vital signs: Temperature 96.8, pulse 74, respiration 18, blood pressure 148/67, pulse ox 82% on room air when ambulating. 92-94% at rest. General: Patient alert and oriented times three, in no acute distress, frail. HEENT: Normocephalic, atraumatic. Pulmonary: Bilateral rhonchi. Diminished breath sounds bilateral bases. Cardiac: Regular rate and rhythm. Normal S1, S2. Abdomen: Soft, nontender, positive bowel sounds. Extremities: No clubbing, cyanosis or edema. EKG shows sinus rhythm of 75. T wave inversion 81. Chest x-ray shows left upper lobe mass. LABORATORY: WBC 14.4, hemoglobin and hematocrit 11/33.5, platelets 349. Chemistry: Sodium 128, potassium 4.6, chloride 90, bicarbonate 36, BUN 13, creatinine 0.48. Lactic acid 1.1. Cardiac enzyme negative times one. C-reactive protein 7.8. ASSESSMENT AND PLAN: This is an 87-year-old male patient with underlying medical history of paroxysmal atrial fibrillation on anticoagulation, hypertension, congestive heart failure (CHF) with systolic and diastolic dysfunction, ejection fraction (EF) of 35%, chronic obstructive pulmonary disease (COPD), malignant nodules in the lung, benign prostatic hypertrophy (BPH), chronic hyponatremia, osteoarthritis, alcoholism, transient ischemic attack (TIA) admitted for chest pain. PROBLEMS: 1. Chest pain likely non-cardiac. Will trend cardiac enzyme. Telemetry monitoring. Possibly secondary to underlying tumor given patient had a left upper lobe tumor. Will get CT of the chest with IV contrast to assess to see if the tumor has invaded the patient's bones. In the meantime, supportive care, medications ordered. 2. Acute hypoxic respiratory failure secondary to congestive heart failure (CHF) exacerbation. Oxygen supplementation. Diuresis with Lasix. Strict input and output. Continue to monitor. Trend cardiac enzymes. 3. Pneumonia, community acquired bacterial pneumonia. Rocephin and azithromycin. Followup cultures. 4. Leukocytosis with elevated C-reactive protein. Followup C-reactive protein. 5. Chronic atrial fibrillation. Patient currently in sinus rhythm. Will monitor patient closely. Continue anticoagulation. 6. Coronary arterial disease. Patient on anticoagulation. Continue spironolactone. Monitor blood pressure. 7. Chronic obstructive pulmonary disease (COPD). Continue home medication. Nebulizer treatment as needed. Treatment with antibiotics as above. Patient currently not having much wheeze. 8. Benign prostatic hypertrophy (BPH). Continue current medication. 9. Hyponatremia. Currently at baseline. Continue to monitor. 10. History of alcoholism. Patient has not drank any alcohol beverages for a year. 11. Deep venous thrombosis (DVT) prophylaxis. Patient on Xarelto. DISPOSITION: Pending CT of the chest and further workup for chest pain. Possibly will need for arrange for oxygen at home. Patient and Family Services (PFS) consulted. Physical therapy.
--- NOTE | 2017-08-25 06:10 | REPUSA ---
CLINICAL HISTORY: Primary neoplasm of the lung. TECHNIQUE: Multiple axial CT images were obtained through the thorax with IV contrast material. COMMENTS: Comparison to the prior exam of 05/01/2017. Unchanged bilateral peribronchial interstitial thickening suggestive of bronchitis. Increase in the size of the spiculated/irregular mass in the left upper lobe measuring 4.3x3.7 cm on the current exam. Increased surrounding parenchyma retraction. Interval appearance of bilateral basilar atelectatic airspace disease in the posterior basal segments of the lower lobes with mild surrounding groundglass densities. Increase in the size of the ill-defined metastatic lesion in the right hepatic lobe measuring 11.1 ce ntimeters on the current exam. Mildly dilated main pulmonary artery suggestive of pulmonary hypertension. No pulmonary embolus or aortic dissection. Diffuse atheromatous plaques are noted. Unchanged multiple cysts of the right hepatic lobe. IMPRESSION: Increase in the size of the spiculated mass in the left upper lobe. Increased metastatic disease in the liver. Unchanged chronic bronchitis. Interval appearance of bilateral basilar atelectatic airspace disease in the posterior segment of the lower lobes. Mild associated groundglass densities which can be secondary to hypoventilatory changes/air trapping. Associated infectious/inflammatory pathology needs to be excluded clinically. No pulmonary embolus or aortic dissection. Enlarged pulmonary arteries suggestive of pulmonary hypertension. Thank you for your kind referral of this patient.
--- NOTE | 2017-08-25 07:34 | REP ---
Portable chest, 01:07 a.m., single AP view, patient sitting: Comparison is the AP and lateral chest dated 05/12/2017. There is a left upper lobe mass. This has increased in size. The lung woo otherwise clear. Cardiac size is normal. There is a pacemaker, unchanged. The tesha appear enlarged, unchanged, however there is magnification from portable positioning. Signed by Preet Carr MD 08/25/2017 07:25 A
[2017-08-25] MEDS: IPRATROPIUM 0.5MG/ALBUTEROL 2.5MG INH SOL UD 3ML (DUONEB)(J7620) NEB SCH ×2 (07:52→14:31)
[2017-08-25 08:00] VITALS: BP 94/51
[2017-08-25] MEDS ORDERED: cefTRIAXone SOD 2 GM in D5W 50 ML IV SCH (08:00)
[2017-08-25] MEDS ORDERED: ASCORBIC ACID 500 MG TAB PO SCH (09:00)
[2017-08-25] MEDS ORDERED: FINASTERIDE 5 MG TAB PO SCH (09:00)
[2017-08-25] MEDS ORDERED: MAGNESIUM OXIDE 400 MG TAB (MAG-OX) PO SCH (09:00)
[2017-08-25] MEDS ORDERED: VITAMIN D 1,000 INTERNATIONAL UNITS TABLET PO SCH (09:00)
[2017-08-25] MEDS ORDERED: SYMBICORT 160/4.5MCG INHALER 6GM INH SCH (09:00)
[2017-08-25] MEDS ORDERED: SENOKOT S TAB PO SCH (09:00)
[2017-08-25] MEDS ORDERED: SPIRONOLACTONE 25 MG TAB PO SCH (09:00)
[2017-08-25] MEDS ORDERED: OMEGA-3 1050MG CAPSULE PO SCH (09:00)
[2017-08-25] MEDS ORDERED: FUROSEMIDE 20 MG/2 ML VIAL (J1940) IV SCH (09:00)
[2017-08-25] MEDS ORDERED: levETIRAcetam 250MG TABLET (KEPPRA) PO SCH (09:00)
[2017-08-25] MEDS ORDERED: RIVAROXABAN 15 MG TAB (XARELTO) PO SCH (09:00)
[2017-08-25] MEDS ORDERED: MORPHINE 10MG/0.5ML ORAL CONCENTRATE SOLUTION U/D SL PRN (12:15)
[2017-08-25] MEDS ORDERED: LORazepam 1 MG TAB PO PRN (12:15)
[2017-08-25] MEDS ORDERED: SCOPOLAMINE 1.5 MG TRANSDERMAL TD PRN (12:15)
[2017-08-25] MEDS ORDERED: LEVA750T7 PO (13:01)
[2017-08-25] MEDS ORDERED: OXYC1TAB23 PO (13:01)
--- NOTE | 2017-08-25 18:35 | DSES ---
DATE OF ADMISSION: 08/25/2017 DATE OF DISCHARGE: 08/25/2017 PRIMARY CARE PROVIDER: Dr. Siu CONSULTANTS: None. DISCHARGE DIAGNOSES: 1. Noncardiac chest pain. 2. Acute hypoxic respiratory failure. 3. Left lung mass with liver lesions. 4. Congestive heart failure exacerbation. 5. Community-acquired pneumonia. 6. Chronic atrial fibrillation. 7. Coronary artery disease. 8. Chronic obstructive pulmonary disease (COPD). 9. Benign prostatic hypertrophy (BPH). 10. Hyponatremia. HOSPITAL COURSE: The patient is an 87-year-old male who was transferred from [facility] to [facility] for severe left-sided chest pain. While the patient was in the emergency room, the patient was found to have oxygen desaturation during ambulation. The hospitalist was called for admission and during the diagnostic workup, the patient was found to have findings suggestive of pneumonia and the patient was started on antibiotics. Later, CT of the chest with contrast was ordered and the results show increased size of a spiculated lesion in the left upper lobe and there is increased metastatic disease in the liver. Later, the findings were discussed with the patient and the patient's medical orders for life-sustaining treatment (MOLST) from was reviewed. The patient strongly stated that he does not want any diagnostic tests or procedures to be done for his lung mass and liver lesions. He expressed the wish for COMFORT MEASURES ONLY and the decision was clearly stated on the patient's MOLST form. The patient's right-sided chest pain was able to be controlled with the oral Percocet regimen. After a long discussion with the patient and the patient's family member, the patient expressed the desire to talk with hospice service and the patient also did express the wish to go back to the [facility] where the patient's was located. With the help of the manager of case management, social work faculty member and nursing supervisor final, we are able to discharge the patient back to [facility] where he can spend time with his and hospice service is also notified with the patient's situation and the patient will be seen on 08/26/2017 to discuss about his options. The decision and the plan were confirmed with the patient and the patient's family member. On 08/25/2017, in the afternoon, the patient is transferred back to [facility]. Prior to discharge, the patient is able to ambulate in the hallway without any desaturations. The patient's left-sided chest pain has been very well-controlled. VITAL SIGNS: Temperature is 97.6, pulse is 70, respirations 18, blood pressure is 94/51, pulse oximetry is 92% with three liters nasal cannula. Later, the oxygen saturation is 99% in room air. LABORATORY DATA: WBC 14.4, hemoglobin 11, hematocrit 33.5, platelet count is 349. Sodium is 128, potassium 4.6, chloride is 90, carbon dioxide 36, BUN 13, creatinine 0.48, GFR greater than 60, fasting glucose is 97, calcium is 9.1, lactic acid 1.1, total CK is 27, troponin I is less than 0.02, C-reactive protein is 7.84, TSH is 1.68. ABG shows pH of 7.46, pCO2 is 43, pO2 is 68, HCO3 is 30. MICROBIOLOGY: Blood cultures are pending. IMAGING STUDIES: Chest x-ray shows left upper lobe mass increased in size. CT of the chest with contrast shows increasing size of the spiculated mass in the left upper lobe. Increased metastatic disease in the liver. Mild associated ground-glass density. No pulmonary embolism or aortic dissection. DISCHARGE MEDICATIONS: - Levaquin 750 mg by mouth daily for five days - Percocet one tablet by mouth every six hours as needed - Tylenol 650 mg by mouth every four hours as needed - Symbicort two puff inhalation twice a day - finasteride 5 mg by mouth daily - Keppra 500 mg by mouth twice a day - milk of magnesia 30 mL by mouth daily as needed - nitroglycerine 0.4 mg sublingual every five minutes as needed - Xarelto 15 mg by mouth daily - spironolactone 25 mg by mouth daily DISCHARGE INSTRUCTIONS: Discharge the patient to [facility]. Activity as tolerated. Diet as tolerated. The patient is COMFORT MEASURES ONLY (CUSTODIAL AIDE) status. The patient already came in with a medical orders for life-sustaining treatment (MOLST) form stating his wishes clearly. The patient's pain is well-controlled with the current pain medication regimen. The patient expressed a strong to meet with the hospice service and there will be a scheduled meeting on 08/26/2017. The patient is recommended to finish the course of Levaquin for the ground-glass density in his lung. DISCHARGE CONDITION: Guarded. DISCHARGE TIME: Greater than 30 minutes.
== END 2017-08-25 16:30 | disposition home or self-care (01) ==
LOC: M ED 00:10 → M ED INP 00:11 → UNDOADMIN 04:22 → M ED INP 04:22
PROVIDERS: ADMIT Internal Medicine; ATTEND Internal Medicine
DX: R07.89 Other chest pain (principal); J96.01 Acute respiratory failure with hypoxia; R91.8 Other nonspecific abnormal finding of lung field; I50.41 Acute combined systolic (congestive) and diastolic (congestive) heart failure; I11.0 Hypertensive heart disease with heart failure; I48.2 Chronic atrial fibrillation; J18.9 Pneumonia, unspecified organism; I25.10 Atherosclerotic heart disease of native coronary artery without angina pectoris; J44.9 Chronic obstructive pulmonary disease, unspecified; N40.0 Benign prostatic hyperplasia without lower urinary tract symptoms; E87.1 Hypo-osmolality and hyponatremia; Z79.899 Other long term (current) drug therapy; Z79.01 Long term (current) use of anticoagulants; Z95.0 Presence of cardiac pacemaker; Z87.891 Personal history of nicotine dependence
CPT/HCPCS: 36415; 36600; 71010; 71260; 80048; 82436; 82550; 82553; 82570; 82803; 83605; 83880; 83935; 84133; 84156; 84300; 84443; 84484; 85025; 86140; 87040; 93005; 93041; 94640; 96374; 96375; 96376; 99285; G0378; J0456; J0696; J1940; Q9967

== ENCOUNTER 2017-08-28 07:42 | Emergency (ER) | payer MEDICARE ==
[~2017-08-28] VITALS: Ht 162.6 cm; Wt 51.8 kg
[~2017-08-28 07:42] MED LIST changes: +LEVA750T7 PO; +MAPA325T2 PO; +MILKSUS PO; +OPTI0.5D5 OU; +OXYC1TAB23 PO
[2017-08-28 10:22] VITALS: BP 103/55
== END 2017-08-28 10:33 | disposition home or self-care (01) ==
LOC: EDBD 07:42 → M ED 07:42
DX: R42 Dizziness and giddiness (principal); R55 Syncope and collapse; C34.92 Malignant neoplasm of unspecified part of left bronchus or lung; J44.9 Chronic obstructive pulmonary disease, unspecified; Z87.891 Personal history of nicotine dependence; Z79.899 Other long term (current) drug therapy